=== PATIENT | female | born 1975 | race Hispanic/Latino ===

== ENCOUNTER → 2019-04-08 | Day surgery (SDC) | payer OTHER ==
[~2019-04-08] MED LIST: COLACE100 MG PO; FENTANYL CITRATE/PF 100MCG/2 ML INJ ONE; HYOSCYAMINE 0.125 MG TAB ONE; LIDOCAINE HCL 2% LOCAL INJ 5 ML SDV VIAL INJ ONE; METOCLOPRAMIDE HCL 10 MG/2ML VIAL ONE; MIDAZOLAM HCL 2 MG/2 ML VIAL ONE; PANTOPRAZOLE SO40 MG PO; PROBIOTIC & AC1 EACH PO; PROPOFOL IV EMULSION 10 MG/ML 20 ML VIAL ONE; PROPOFOL IV EMULSION 10 MG/ML 50 ML VIAL ONE
--- OUTSIDE RECORDS SUMMARY | 2019-04-08 13:34 | XMS REPORT ---
Author Author Admin, [place] Organization Unknown Address Unknown Phone Unavailable PROBLEMS Condition Status Date Provider Notes Vitamin D deficiency active Nae Scales Anemia active Nae Scales Insomnia active Nae Scales Plantar fasciitis, right active Nae Scales Screening, STD completed - Nae Scales Mammogram, Screening active - Nae Scales Pap Smear Screening, routine completed - Nae Scales Fatigue active Nae Scales Cough active Camille Real Sinusitis - acute active Camille Real Fever active Camille Noble Right knee pain active Nae Scales Annual exam active Nae Scales Abdominal pain active Nae Scales LLQ and RLQ Fever completed - Nae Scales Tonsillitis completed - Nae Scales Abnormal fasting glucose active Nae Scales Ankle pain, right completed - Nae Scales Strep pharyngitis completed - Nae Scales Screening for thyroid disorder completed - Nae Scales Screening for endocrine disease completed - Nae Scales Diabetes, Screening for completed - Nae Scales Fatty liver active Nae Scales Hypertriglyceridemia active Nae Scales Unspecified injury of right lower leg, initial encounter completed - Nae Scales Knee pain, right completed - Gayathri Scales Obesity active Nae Scales ENCOUNTERS Date Type Provider Location Encounter Diagnosis - Ambulatory Encounter Nae Scales [facility] UNK - Ambulatory Encounter Nae Ramirez [facility] UNK - Ambulatory Encounter [facility] Support Desktop [facility] Abe Nichole [facility] UNK - Ambulatory Encounter Fax Status [facility] UNK - Ambulatory Encounter Fax Status [facility] UNK - Ambulatory Encounter Fax Status [facility] UNK - Ambulatory Encounter Abe Nazario [facility] UNK - Ambulatory Encounter Abe Nichole [facility] UNK - Ambulatory Encounter Abe Nichole [facility] UNK - Ambulatory Encounter Abe Earlrera [facility] UNK - [facility] - [facility] En[facility] Fax Status [facility] UNK - Ambulatory Encounter Fax Status [facility] UNK - Ambulatory Encounter Fax Status [facility] UNK - Ambulatory Encounter Nae Scales [facility] UNK - Ambulatory Encounter Nae Smith [facility] UNK - Ambulatory Encounter Cheryl Erickson [facility] UNK - Ambulatory Encounter Nae Scales [facility] AnemiaVitamin D deficiency - Ambulatory Encounter Nae Scales [facility] UNK - Ambulatory Encounter Nae Scales [facility] UNK - Ambulatory Encounter Nae Scales [facility] UNK - Ambulatory Encounter [facility] Support Desktop [facility] Nae Scales [facility] UNK - Ambulatory Encounter [facility] Support Desktop [facility] Nae Scales [facility] UNK - Ambulatory Encounter [facility] Support Desktop [facility] Cheryl Scales [facility] UNK - Ambulatory [facility] - [facility] Encounter Nae Scales [facility] Insomnia - Ambulatory Encounter Nae Scales [facility] UNK - Ambulatory Encounter Nae Alcantar [facility] FatiguePap Smear Screening, routineMammogram, ScreeningScreening, STDPlantar fasciitis, right - Ambulatory Encounter Nae Eubanks [facility] UNK - Ambulatory Encounter Nae Scales [facility] UNK - Ambulatory Encounter [facility] Desktop Cha Scales [facility] UNK - Ambulatory Encounter Nae Scales [facility] UNK - Ambulatory Encounter Nae Scales Dena Burroughs [facility] UNK - Ambulatory Encounter Marie Cardenas [facility] UNK - Ambulatory Encounter Camille Real Camille Real [facility] UNK - Ambulatory Encounter Camille Real Camille Real Hartman [facility] FeverSinusitis - acuteCough - Ambulatory Encounter Vanessa [facility] - [facility] En[facility]ae [facility] UNK - Ambulatory Encounter Nae Scales [facility] UNK - Ambulatory Encounter Nae Scales [facility] UNK - Ambulatory Encounter Lexii Smith [facility] UNK - Ambulatory Encounter Nae Scales [facility] UNK - Ambulatory Encounter [facility] Support Desktop [facility] Lexii Scales [facility] UNK - Ambulatory Encounter Fax Status [facility] - [facility] En[facility] Fax Status [facility] - Ambulatory Encounter Fax Status [facility] UNK - Ambulatory Encounter Fax Status [facility] UNK - Ambulatory Encounter Nae Scales [facility] UNK - Ambulatory Encounter Nae Scales [facility] UNK - Ambulatory Encounter Nae Vizcarraera Derrick Lizabeth Garcia Cheryl Erickson [facility] Knee pain, rightUnspecified injury of right lower leg, initial encounterAnkle pain, rightTonsillitisFeverAbdominal painAnnual examRight knee pain - Ambulatory Encounter Jovanna Fowler [facility] UNK - Ambulatory Encounter Nae Scales [facility] UNK - Ambulatory Encounter Nae Scales [facility] UNK - Ambulatory Encounter Nae Scales [facility] UNK - Ambulatory Encounter Nae Gentile [facility] TonsillitisFever - Ambulatory Encounter Jason Foote [facility] UNK - Ambulatory Encounter Jasonamanda Foote [facility] UNK - Ambulatory Encounter [facility] Provider Amanda Reid [facility] UNK - Ambulatory Encounter Amanda Reid [facility] UNK - Ambulatory Encounter Amanda Reid [facility] UNK - Ambulatory Encounter Todd Eubanks [facility] UNK - Ambulatory Encounter Nae Scales [facility] - [facility] for endocrine diseaseScreening for thyroid disorderStrep pharyngitisAnkle pain, rightAbnormal fasting glucose - Ambulatory Encounter Constanza Barrientos [facility] UNK - Ambulatory Encounter Constanza Barrientos Priya Luna Erickson [facility] Strep pharyngitis - Ambulatory Encounter Megan Cardenas [facility] UNK - Ambulatory Encounter Megan Cardenas [facility] UNK - Ambulatory Encounter Nae Scales [facility] UNK - Ambulatory Encounter Nae Scales [facility] UNK - Ambulatory Encounter [facility] Support Desktop [facility] Scales [facility] UNK - Ambulatory Encounter Nae Scales [facility] UNK - Ambulatory Encounter Nae Scales [facility] UNK - Ambulatory Encounter Nae Scales [facility] UNK - Ambulatory Encounter Nae Cortez [facility] ObesityKnee pain, rightUnspecified injury of right lower leg, initial encounterHypertriglyceridemiaFatty liverDiabetes, Screening forScreening for endocrine diseaseScreening for thyroid disorder VITAL SIGNS No Information Available Allergies No Known Allergy Information REASON FOR REFERRAL Start Date - End Date Service - Podiatry - External - Endocrinology - Adult - Podiatry - External RESULTS Date Observation Value Provider Reference Range Interpretation Location infectious mononucleosis screen Negative [facility] Negative " ferritin, serum 5 ng/mL [facility] 15-150 Low " thyroid stimulating hormone, serum 1.680 u[iU]/mL [facility] 0.450-4.500 " vitamin D 25-hydroxy, serum 13.4 ng/mL [facility] 30.0-100.0 Low " iron saturation percent, serum 5 % [facility] 15-55 Panic low " iron, serum 18 ug/dL [facility] 27-159 Low " iron binding capacity, unsaturated 330 ug/dL [facility] 131-425 " iron binding capacity, total 348 ug/dL [facility] 250-450 " alanine aminotransferase (SGPT), serum 11 1/L [facility] 0-32 " aspartate aminotransferase (SGOT), serum 14 1/L [facility] 0-40 " alkaline phosphatase, serum 59 1/L [facility] 39-117 " bilirubin, serum, total <0.2 mg/dL [facility] 0.0-1.2 " albumin/globulin ratio, serum 1.7 [facility] 1.2-2.2 " globulin, serum 2.3 [facility] 1.5-4.5 " albumin, serum 4.0 g/dL [facility] 3.5-5.5 " protein, total, serum 6.3 g/dL [facility] 6.0-8.5 " calcium, serum 8.7 mg/dL [facility] 8.7-10.2 " carbon dioxide, venous blood 25 mmol/L [facility] 20-29 " chloride, serum 104 mmol/L [facility] 96-106 " potassium, serum 4.2 mmol/L [facility] 3.5-5.2 " sodium, serum 143 mmol/L [facility] 134-144 " urea nitrogen/creatinine ratio, serum 10 [facility] 9-23 " eGFR if 93 mL/min/((173/100).m2) [facility] >59 " Estimated Glomerular Filtration Rate (calc) 81 mL/min/((173/100).m2) [facility] >59 " creatinine, serum 0.87 mg/dL [facility] 0.57-1.00 " urea nitrogen, blood 9 mg/dL [facility] 6-24 " blood glucose, random 93 mg/dL [facility] 65-99 " immature granulocytes, percentage of total cells, blood 0 % [facility] Not Estab. " basophil count, absolute 0.0 x10E3/uL [facility] 0.0-0.2 " Eosinophil Absolute Count 0.2 X10E3/UL [facility] 0.0-0.4 " monocyte count, blood, automated 0.7 X10E3/UL [facility] 0.1-0.9 " lymphocyte count, blood, automated 2.6 X10E3/UL [facility] 0.7-3.1 " Absolute Neutrophils 5.6 X10E3/UL [facility] 1.4-7.0 " basophils as percent of blood leukocytes 0 % [facility] Not Estab. " eosinophils as percent of blood leukocytes 2 % [facility] Not Estab. " monocytes as percent of blood leukocytes 7 % [facility] Not Estab. " lymphocytes as percent of blood leukocytes 28 % [facility] Not Estab. " neutrophils as percent of blood leukocytes 63 % [facility] Not Estab. " platelet count 445 X10E3/UL [facility] 150-450 " red blood cell distribution width 16.6 % [facility] 12.3-15.4 High " mean corpuscular hemoglobin concentration, RBC 31.7 G/DL [facility] 31.5-35.7 " mean corpuscular hemoglobin, RBC 25.1 pg [facility] 26.6-33.0 Low " mean corpuscular volume, RBC 79 fL [facility] 79-97 " hematocrit, blood 30.6 % [facility] 34.0-46.6 Low " hemoglobin, blood 9.7 g/dL [facility] 11.1-15.9 Low " erythrocyte (RBC) count 3.86 X10E6/UL [facility] 3.77-5.28 " leukocyte count, blood 9.0 X10E3/UL [facility] 3.4-10.8 heterophile antibody screen (Monospot) negative Dena Nazario " hemoglobin, blood 8.0 g/dL Dena Nazario Neisseria gonorrhoeae DNA probe Negative [facility] Negative " chlamydia DNA probe Negative [facility] Negative thyroid stimulating hormone, serum 1.370 u[iU]/mL [facility] 0.450-4.500 " HIV-CMIA (Chemiluminescent Microparticle Immuno Assay) Non Reactive [facility]ic Non Reactive " vitamin D 25-hydroxy, serum 17.7 ng/mL [facility] 30.0-100.0 Low " rapid plasma reagin antibody, serum Non Reactive [facility] Non Reactive " hemoglobin A1C, blood, as % of total hemoglobin 4.7 % [facility] 4.8-5.6 Low " folate, serum 6.3 ng/mL [facility] >3.0 " B-12, serum 1990 pg/mL [facility] 232-1245 High " LDL cholesterol, serum 104 mg/dL [facility] 0-99 High " very low density lipoproteins 18 mg/dL [facility] 5-40 " HDL cholesterol, serum 47 mg/dL [facility] >39 " triglyceride, serum, fasting 91 mg/dL [facility] 0-149 " cholesterol, serum 169 mg/dL [facility] 100-199 " alanine aminotransferase (SGPT), serum 12 1/L [facility] 0-32 " aspartate aminotransferase (SGOT), serum 14 1/L [facility] 0-40 " alkaline phosphatase, serum 49 1/L [facility] 39-117 " bilirubin, serum, total 0.3 mg/dL [facility] 0.0-1.2 " albumin/globulin ratio, serum 1.9 [facility] 1.2-2.2 " globulin, serum 2.2 [facility] 1.5-4.5 " albumin, serum 4.1 g/dL [facility] 3.5-5.5 " protein, total, serum 6.3 g/dL [facility] 6.0-8.5 " calcium, serum 8.9 mg/dL [facility] 8.7-10.2 " carbon dioxide, venous blood 23 mmol/L [facility] 20-29 " chloride, serum 106 mmol/L [facility] 96-106 " potassium, serum 4.7 mmol/L [facility] 3.5-5.2 " sodium, serum 141 mmol/L [facility] 134-144 " urea nitrogen/creatinine ratio, serum 19 [facility] 9-23 " eGFR if 138 mL/min/((173/100).m2) [facility] >59 " Estimated Glomerular Filtration Rate (calc) 120 mL/min/((173/100).m2) [facility] >59 " creatinine, serum 0.48 mg/dL [facility] 0.57-1.00 Low " urea nitrogen, blood 9 mg/dL [facility] 6-24 " blood glucose, random 85 mg/dL [facility] 65-99 " immature granulocytes, percentage of total cells, blood 0 % [facility] Not Estab. " basophil count, absolute 0.0 x10E3/uL [facility] 0.0-0.2 " Eosinophil Absolute Count 0.2 X10E3/UL [facility] 0.0-0.4 " monocyte count, blood, automated 0.4 X10E3/UL [facility] 0.1-0.9 " lymphocyte count, blood, automated 2.3 X10E3/UL [facility] 0.7-3.1 " Absolute Neutrophils 3.1 X10E3/UL [facility] 1.4-7.0 " basophils as percent of blood leukocytes 1 % [facility] Not Estab. " eosinophils as percent of blood leukocytes 4 % [facility] Not Estab. " monocytes as percent of blood leukocytes 6 % [facility] Not Estab. " lymphocytes as percent of blood leukocytes 39 % [facility] Not Estab. " neutrophils as percent of blood leukocytes 50 % [facility] Not Estab. " platelet count 474 X10E3/UL [facility] 150-379 High " red blood cell distribution width 15.6 % [facility] 12.3-15.4 High " mean corpuscular hemoglobin concentration, RBC 30.7 G/DL [facility] 31.5-35.7 Low " mean corpuscular hemoglobin, RBC 24.6 pg [facility] 26.6-33.0 Low " mean corpuscular volume, RBC 80 fL [facility] 79-97 " hematocrit, blood 33.5 % [facility] 34.0-46.6 Low " hemoglobin, blood 10.3 g/dL [facility] 11.1-15.9 Low " erythrocyte (RBC) count 4.18 X10E6/UL [facility] 3.77-5.28 " leukocyte count, blood 6.0 X10E3/UL [facility] 3.4-10.8 hemoglobin A1C, blood, as % of total hemoglobin 5.6 % [facility] 4.8-5.6 " LDL cholesterol, serum 96 mg/dL [facility] 0-99 " very low density lipoproteins 22 mg/dL [facility] 5-40 " HDL cholesterol, serum 41 mg/dL [facility] >39 " triglyceride, serum, fasting 111 mg/dL [facility] 0-149 " cholesterol, serum 159 mg/dL [facility] 100-199 " alanine aminotransferase (SGPT), serum 19 1/L [facility] 0-32 " aspartate aminotransferase (SGOT), serum 20 1/L [facility] 0-40 " alkaline phosphatase, serum 65 1/L [facility] 39-117 " bilirubin, serum, total 0.4 mg/dL [facility] 0.0-1.2 " albumin/globulin ratio, serum 1.8 [facility] 1.2-2.2 " globulin, serum 2.4 [facility] 1.5-4.5 " albumin, serum 4.2 g/dL [facility] 3.5-5.5 " protein, total, serum 6.6 g/dL [facility] 6.0-8.5 " calcium, serum 9.1 mg/dL [facility] 8.7-10.2 " carbon dioxide, venous blood 23 mmol/L [facility] 18-29 " chloride, serum 104 mmol/L [facility] 96-106 " potassium, serum 4.4 mmol/L [facility] 3.5-5.2 " sodium, serum 142 mmol/L [facility] 134-144 " urea nitrogen/creatinine ratio, serum 16 [facility] 9-23 " eGFR if 132 mL/min/((173/100).m2) [facility] >59 " Estimated Glomerular Filtration Rate (calc) 115 mL/min/((173/100).m2) [facility] >59 " creatinine, serum 0.56 mg/dL [facility] 0.57-1.00 Low " urea nitrogen, blood 9 mg/dL [facility] 6-24 " blood glucose, random 100 mg/dL [facility] 65-99 High hemoglobin A1C, blood, as % of total hemoglobin 5.8 % [facility] 4.8-5.6 High " LDL cholesterol, serum 128 mg/dL [facility] 0-99 High " very low density lipoproteins 38 mg/dL [facility] 5-40 " HDL cholesterol, serum 42 mg/dL [facility] >39 " triglyceride, serum, fasting 192 mg/dL [facility] 0-149 High " cholesterol, serum 208 mg/dL [facility] 100-199 High " alanine aminotransferase (SGPT), serum 29 1/L [facility] 0-32 " aspartate aminotransferase (SGOT), serum 28 1/L [facility] 0-40 " alkaline phosphatase, serum 60 1/L [facility] 39-117 " bilirubin, serum, total 0.4 mg/dL [facility] 0.0-1.2 " albumin/globulin ratio, serum 1.9 [facility] 1.2-2.2 " globulin, serum 2.3 [facility] 1.5-4.5 " albumin, serum 4.3 g/dL [facility] 3.5-5.5 " protein, total, serum 6.6 g/dL [facility] 6.0-8.5 " calcium, serum 9.0 mg/dL [facility] 8.7-10.2 " carbon dioxide, venous blood 24 mmol/L [facility] 18-29 " chloride, serum 104 mmol/L [facility] 96-106 " potassium, serum 4.7 mmol/L [facility] 3.5-5.2 " sodium, serum 142 mmol/L [facility] 134-144 " urea nitrogen/creatinine ratio, serum 20 [facility] 9-23 " eGFR if 130 mL/min/((173/100).m2) [facility] >59 " Estimated Glomerular Filtration Rate (calc) 113 mL/min/((173/100).m2) [facility] >59 " creatinine, serum 0.59 mg/dL [facility] 0.57-1.00 " urea nitrogen, blood 12 mg/dL [facility] 6-24 " blood glucose, random 101 mg/dL [facility] 65-99 High " immature granulocytes, percentage of total cells, blood 0 % [facility] " basophil count, absolute 0.0 x10E3/uL [facility] 0.0-0.2 " Eosinophil Absolute Count 0.3 X10E3/UL [facility] 0.0-0.4 " monocyte count, blood, automated 0.5 X10E3/UL [facility] 0.1-0.9 " lymphocyte count, blood, automated 3.1 X10E3/UL [facility] 0.7-3.1 " Absolute Neutrophils 4.4 X10E3/UL [facility] 1.4-7.0 " basophils as percent of blood leukocytes 1 % [facility] " eosinophils as percent of blood leukocytes 3 % [facility] " monocytes as percent of blood leukocytes 6 % [facility] " lymphocytes as percent of blood leukocytes 38 % [facility] " neutrophils as percent of blood leukocytes 52 % [facility] " platelet count 378 X10E3/UL [facility] 150-379 " red blood cell distribution width 15.3 % [facility] 12.3-15.4 " mean corpuscular hemoglobin concentration, RBC 31.9 G/DL [facility] 31.5-35.7 " mean corpuscular hemoglobin, RBC 27.4 pg [facility] 26.6-33.0 " mean corpuscular volume, RBC 86 fL [facility] 79-97 " hematocrit, blood 36.0 % [facility] 34.0-46.6 " hemoglobin, blood 11.5 g/dL [facility] 11.1-15.9 " erythrocyte (RBC) count 4.19 X10E6/UL [facility] 3.77-5.28 " leukocyte count, blood 8.3 X10E3/UL [facility] 3.4-10.8 Microbial identification kit, rapid strep method negative Nae Scales influenza B virus antigen negative Priya Butler " influenza virus A antigen negative Priya Butler " Microbial identification kit, rapid strep method positive Priya Butler thyroid stimulating hormone, serum 1.940 u[iU]/mL [facility] 0.450-4.500 " hemoglobin A1C, blood, as % of total hemoglobin 5.7 % [facility] 4.8-5.6 High " LDL cholesterol, serum 160 mg/dL [facility] 0-99 High " very low density lipoproteins 26 mg/dL [facility] 5-40 " HDL cholesterol, serum 47 mg/dL [facility] >39 " triglyceride, serum, fasting 132 mg/dL [facility] 0-149 " cholesterol, serum 233 mg/dL [facility] 100-199 High " alanine aminotransferase (SGPT), serum 25 1/L [facility] 0-32 " aspartate aminotransferase (SGOT), serum 24 1/L [facility] 0-40 " alkaline phosphatase, serum 66 1/L [facility] 39-117 " bilirubin, serum, total 0.3 mg/dL [facility] 0.0-1.2 " albumin/globulin ratio, serum 1.7 [facility] 1.2-2.2 " globulin, serum 2.6 [facility] 1.5-4.5 " albumin, serum 4.3 g/dL [facility] 3.5-5.5 " protein, total, serum 6.9 g/dL [facility] 6.0-8.5 " calcium, serum 9.2 mg/dL [facility] 8.7-10.2 " carbon dioxide, venous blood 23 mmol/L [facility] 18-29 " chloride, serum 100 mmol/L [facility] 96-106 " potassium, serum 4.8 mmol/L [facility] 3.5-5.2 " sodium, serum 141 mmol/L [facility] 134-144 " urea nitrogen/creatinine ratio, serum 21 [facility] 9-23 " eGFR if 135 mL/min/((173/100).m2) [facility] >59 " Estimated Glomerular Filtration Rate (calc) 117 mL/min/((173/100).m2) [facility] >59 " creatinine, serum 0.53 mg/dL [facility] 0.57-1.00 Low " urea nitrogen, blood 11 mg/dL [facility] 6-24 " blood glucose, random 95 mg/dL [facility] 65-99 " immature granulocytes, percentage of total cells, blood 0 % [facility] " basophil count, absolute 0.0 x10E3/uL [facility] 0.0-0.2 " Eosinophil Absolute Count 0.3 X10E3/UL [facility] 0.0-0.4 " monocyte count, blood, automated 0.7 X10E3/UL [facility] 0.1-0.9 " lymphocyte count, blood, automated 3.5 X10E3/UL [facility] 0.7-3.1 High " Absolute Neutrophils 6.2 X10E3/UL [facility] 1.4-7.0 " basophils as percent of blood leukocytes 0 % [facility] " eosinophils as percent of blood leukocytes 2 % [facility] " monocytes as percent of blood leukocytes 6 % [facility] " lymphocytes as percent of blood leukocytes 33 % [facility] " neutrophils as percent of blood leukocytes 59 % [facility] " platelet count 394 X10E3/UL [facility] 150-379 High " red blood cell distribution width 14.9 % [facility] 12.3-15.4 " mean corpuscular hemoglobin concentration, RBC 32.1 G/DL [facility] 31.5-35.7 " mean corpuscular hemoglobin, RBC 28.2 pg [facility] 26.6-33.0 " mean corpuscular volume, RBC 88 fL [facility] 79-97 " hematocrit, blood 39.0 % [facility] 34.0-46.6 " hemoglobin, blood 12.5 g/dL [facility] 11.1-15.9 " erythrocyte (RBC) count 4.44 X10E6/UL [facility] 3.77-5.28 " leukocyte count, blood 10.7 X10E3/UL [facility] 3.4-10.8 HISTORY OF IMMUNIZATIONS No Information Available HISTORY OF MEDICATION USE Medication Instructions Dates Provider Comments VITAMIN D (ERGOCALCIFEROL) 01336 UNIT ORAL CAPSULE One capsule by mouth once per week for 12 weeks - Nae Scales FEOSOL 200 (65 FE) MG ORAL TABLET 1 tablet daily Abe Nichole VITAMIN D (ERGOCALCIFEROL) 02852 UNIT ORAL CAPSULE One capsule by mouth once per week for 10 weeks - Nae Scales VITAMIN C 500 MG ORAL TABLET 1 by mouth every day Nae Scales FERROUS SULFATE 325 (65 FE) MG ORAL TABLET DELAYED RELEASE 1 by mouth 2 times a daily Nae Scales DOXEPIN HCL 25 MG ORAL CAPSULE 1 by mouth nightly at bedtime Nae Scales PHENTERMINE HCL 37.5 MG ORAL TABLET 1/2 tablet by mouth daily Nae Scales CHERATUSSIN AC 100-10 MG/5ML ORAL SOLUTION 10 ml every 6 hrs as needed for cough Camille Real AMOXICILLIN 500 MG ORAL CAPSULE 1 by mouth 2 times a day - Camille Real LOVASTATIN 10 MG ORAL TABLET 1 by mouth every night Nae Scales AZITHROMYCIN 250 MG ORAL TABLET 2 tablets by mouth on day one then one tablet by mouth each day for a total of 5 days - Camille Real PENICILLIN V POTASSIUM 250 MG ORAL TABLET 1 by mouth 4 times a day or ii tablets twice daily for strep throat - Nae Scales SOCIAL HISTORY Date Observation Value Provider Exercise Program Referral Seda Alcantar " Weight Management Counseling Provided Seda Alcantar " Nutrition intervention T Augustina Alcantar " drug use, illicit Never Bettye S Gonzales " alcohol use Never Bettye S Gonzales " social history E&M . Not homeless. Born in [place]. Not employed. Highest education level: none-8th grade. Sex at : Female. Sexual orientation: Heterosexual. Gender identity: Female. Gender of partner(s): Male. Bettye S Gonzales " social history reviewed E&M reviewed today Bettye S Gonzales " sexual orientation Heterosexual Bettye S Gonzales " assessment of health literacy ([facility] 2014 Standards, 3C10) Adequate Bettye S Gonzales " passive cigarette smoke exposure No Bettye S Gonzales " smoking status never smoker Bettye S Gonzales drug use, illicit Never Lizabeth Garcia " alcohol use Never Lizabeth Garcia " social history E&M . Not homeless. Born in [place]. Not employed. Highest education level: none-8th grade. Sex at : Female. Sexual orientation: Heterosexual. Gender identity: Female. Gender of partner(s): Male. Lizabeth Garcia " social history reviewed E&M reviewed today Lizabeth Garcia " sexual orientation Heterosexual Lizabeth Garcia " assessment of health literacy ([facility] 2014 Standards, 3C10) Adequate Lizabeth Garcia " passive cigarette smoke exposure No Lizabeth Garcia " smoking status never smoker Lizabeth Garcia Exercise Program Referral Seda Scales " Weight Management Counseling Provided Seda Scalse " Nutrition intervention Seda Scales " sexual orientation Heterosexual Sharlene Luis " assessment of health literacy ([facility] 2014 Standards, 3C10) Adequate Sharlene Luis " drug use, illicit Never Sharlene Luis " alcohol use Never Sharlene Luis " smoking status never smoker Sharlene Luis Exercise Program Referral Seda Scales " Weight Management Counseling Provided Seda Scales " Nutrition intervention Seda Scales " drug use, illicit Never Lizabeth Garcia " alcohol use Never Lizabeth Garcia " social history E&M . Not homeless. Born in [place]. Not employed. Highest education level: none-8th grade. Sex at : Female. Sexual orientation: Heterosexual. Gender identity: Female. Gender of partner(s): Male. Lizabeth Garcia " social history reviewed E&M reviewed today Lizabeth Garcia " sexual orientation Heterosexual Lizabeth Garcia " assessment of health literacy ([facility] 2014 Standards, 3C10) Adequate Lizabeth Garcia " passive cigarette smoke exposure No Lizabeth Garcia " smoking status never smoker Lizabeth Garcia drug use, illicit Never Dena Burroughs " alcohol use Never Dena Burroughs " social history E&M . Not homeless. Born in [place]. Not employed. Highest education level: none-8th grade. Sex at : Female. Sexual orientation: Heterosexual. Gender identity: Female. Gender of partner(s): Male. Dena Frosts " social history reviewed E&M reviewed today Dena Frosts " sexual orientation Heterosexual Dena Frosts " passive cigarette smoke exposure No Dena Burroughs " smoking status never smoker Dena Burroughs " assessment of health literacy ([facility] 2014 Standards, 3C10) Adequate Dena Burroughs " Exercise Program Referral T Dena Frosts " Weight Management Counseling Provided T Dena Frosts " Nutrition intervention T Dena Frosts drug use, illicit Never Merlyn Hartman " alcohol use Never Merlyn Hartman " social history E&M . Not homeless. Born in [place]. Not employed. Highest education level: none-8th grade. Sex at : Female. Sexual orientation: Heterosexual. Gender identity: Female. Gender of partner(s): Male. Merlyn Hartman " social history reviewed E&M reviewed today Merlyn Hartman " passive cigarette smoke exposure No Merlyn Hartman " smoking status never smoker Merlyn Hartman " assessment of health literacy ([facility] 2014 Standards, 3C10) Adequate Merlyn Hartman Exercise Program Referral T Nae Scales " Weight Management Counseling Provided T Nae Scales " Nutrition intervention T Nae Scales " drug use, illicit Never Cheryl Erickson " alcohol use Never Cheryl Erickson " social history E&M . Not homeless. Born in [place]. Not employed. Highest education level: none-8th grade. Sex at : Female. Sexual orientation: Heterosexual. Gender identity: Female. Gender of partner(s): Male. Cheryl Erickson " social history reviewed E&M reviewed today Cheryl Erickson " sexual orientation Heterosexual Cheryl Erickson " passive cigarette smoke exposure No Cheryl Erickson " smoking status never smoker Cheryl Erickson " assessment of health literacy ([facility] 2014 Standards, 3C10) Adequate Cheryl Erickson assessment of health literacy ([facility] 2014 Standards, 3C10) Adequate Nae Scales " Exercise Program Referral Seda Scales " Weight Management Counseling Provided Seda Scalse " Nutrition intervention Seda Scales " drug use, illicit Never Tahira Gentile " alcohol use Never Tahira Gentile " social history E&M . Not homeless. Born in [place]. Not employed. Highest education level: none-8th grade. Sex at : Female. Sexual orientation: Heterosexual. Gender identity: Female. Gender of partner(s): Male. Tahira Gentile " social history reviewed E&M reviewed today Tahira Gentile " sexual orientation Heterosexual Tahira Gentile " passive cigarette smoke exposure No Tahira Gentile " smoking status never smoker Tahira Gentile assessment of health literacy ([facility] 2014 Standards, 3C10) Adequate Nae Scales " Exercise Program Referral Seda Scales " Weight Management Counseling Provided Seda Scales " Nutrition intervention Seda Scales " drug use, illicit Never Julissa Cortez " alcohol use Never Julissa Cortez " social history E&M . Not homeless. Born in [place]. Not employed. Highest education level: none-8th grade. Sex at : Female. Sexual orientation: Heterosexual. Gender identity: Female. Gender of partner(s): Male. Julissa Cortez " social history reviewed E&M reviewed today Julissa Cortez " sexual orientation Heterosexual Julissa Cortez " passive cigarette smoke exposure No Julissa Cortez " smoking status never smoker Julissa Cortez assessment of health literacy ([facility] 2014 Standards, 3C10) Adequate Priya Butler " social history E&M . Not homeless. Born in [place]. Not employed. Highest education level: none-8th grade. Sex at : Female. Sexual orientation: Heterosexual. Gender identity: Female. Gender of partner(s): Male. Priya Butler " social history reviewed E&M reviewed today Priya Butler " sexual orientation Heterosexual Priya Butler " passive cigarette smoke exposure No Priya Butler " smoking status never smoker Priya Butler assessment of health literacy ([facility] 2014 Standards, 3C10) Mario Scales " Exercise Program Referral Seda Scales " Weight Management Counseling Provided Seda Scales " Nutrition intervention Seda Scales " social history E&M . Not homeless. Born in [place]. Not employed. Highest education level: none-8th grade. Sex at : Female. Sexual orientation: Heterosexual. Gender identity: Female. Gender of partner(s): Male. Julissa Traylorierrez " sex at Female Julissa Traylorierrez " patient considered to be homeless No Julissaadolfo Cortez " drug use, illicit Never Julissa Diego " alcohol use Never Julissa Traylorierrez " passive cigarette smoke exposure No Julissa Traylorierrez " smoking status never smoker Julissa Diego " social history reviewed E&M reviewed today Julissa Diego " sexual orientation Heterosexual Julissa Traylorierrez FUNCTIONAL STATUS No Information Available MENTAL STATUS Date Observation Value Provider assessment of judgment and insight E&M limited Nae Scales " mental status examination: orientation E&M oriented to time, place, and person Nae Scales " assessment of mood and affect E&M pleasant Nae Scales " Generalized Anxiety Disorder Questionnaire - Question 2 0 Bettye Gonzales " Generalized Anxiety Disorder Questionnaire - Question 1 0 Bettye Gonzales assessment of judgment and insight E&M intact Abe Nichole " mental status examination: orientation E&M oriented to time, place, and person Abe Nichole " assessment of mood and affect E&M no depression, anxiety, or agitation Abe Nichole " Generalized Anxiety Disorder Questionnaire - Question 2 0 Lizabeth Garcia " Generalized Anxiety Disorder Questionnaire - Question 1 0 Lizabeth Garcia assessment of judgment and insight E&M intact Nae Scales " mental status examination: orientation E&M oriented to time, place, and person Nae Scales " assessment of mood and affect E&M no depression, anxiety, or agitation Nae Scales " Generalized Anxiety Disorder Questionnaire - Question 2 0 Sharlene Smith " Generalized Anxiety Disorder Questionnaire - Question 1 0 Sharlene Smith assessment of judgment and insight E&M intact Nae Scales " mental status examination: orientation E&M oriented to time, place, and person Nae Scales " assessment of mood and affect E&M no depression, anxiety, or agitation Nae Scales " Generalized Anxiety Disorder Questionnaire - Question 2 0 Lizabeth Garcia " Generalized Anxiety Disorder Questionnaire - Question 1 0 Lizabeth Garcia assessment of judgment and insight E&M intact Nae Loyda " mental status examination: orientation E&M oriented to time, place, and person Nae Scales " assessment of mood and affect E&M no depression, anxiety, or agitation Naejose j Scales " Generalized Anxiety Disorder Questionnaire - Question 2 0 Dena Burroughs " Generalized Anxiety Disorder Questionnaire - Question 1 0 Dena Burroughs Generalized Anxiety Disorder Questionnaire - Question 2 0 Merlyn Hartman " Generalized Anxiety Disorder Questionnaire - Question 1 0 Merlyn Hartman assessment of judgment and insight E&M intact Nae Scales " mental status examination: orientation E&M oriented to time, place, and person Nae Scales " assessment of mood and affect E&M no depression, anxiety, or agitation Nae Scales " Generalized Anxiety Disorder Questionnaire - Question 2 0 Cheryl Erickson " Generalized Anxiety Disorder Questionnaire - Question 1 0 Cheryl Earlrera assessment of judgment and insight E&M intact Nae Scales " mental status examination: orientation E&M oriented to time, place, and person Nae Scales " Generalized Anxiety Disorder Questionnaire - Question 2 0 Tahira Gentile " Generalized Anxiety Disorder Questionnaire - Question 1 0 Tahira Gentile assessment of judgment and insight E&M intact Nae Scales " mental status examination: orientation E&M oriented to time, place, and person Nae Scales " assessment of mood and affect E&M no depression, anxiety, or agitation Nae Loyda Generalized Anxiety Disorder Questionnaire - Question 2 0 Priya Butler " Generalized Anxiety Disorder Questionnaire - Question 1 0 Priya Butler assessment of judgment and insight E&M intact Nae Loyda " mental status examination: orientation E&M oriented to time, place, and person Nae Scales " assessment of mood and affect E&M no depression, anxiety, or agitation Nae Scales " Generalized Anxiety Disorder Questionnaire - Question 2 0 Julissa Cortez " Generalized Anxiety Disorder Questionnaire - Question 1 0 Julissa Cortez MEDICAL EQUIPMENT No Information Available FAMILY HISTORY No Information Available INSURANCE PROVIDERS No Information Available ADVANCE DIRECTIVES No Information Available TREATMENT PLAN Date Name Lipid Panel Vitamin D, 25-Hydroxy Ferritin, Serum Iron and TIBC TSH Rfx on Abnormal to Free T4 Comp. Metabolic Panel (14) CBC With Differential/Platelet Mononucleosis Test, Qual Vitamin B12 and Folate Vitamin D, 25-Hydroxy Chlamydia/GC Amplification Pap w/HPV w rflx 16/18/45 (30+) RPR, Rfx Qn RPR/Confirm TP HIV 1/2 ANTIGEN/ANTIBODY, FOURTH GENERATION W/RFL TSH Rfx on Abnormal to Free T4 Hemoglobin A1c Lipid Panel Comp. Metabolic Panel (14) CBC With Differential/Platelet Comp. Metabolic Panel (14) Hemoglobin A1c Lipid Panel Hemoglobin A1c Lipid Panel Comp. Metabolic Panel (14) CBC With Differential/Platelet TSH Rfx on Abnormal to Free T4 Hemoglobin A1c Lipid Panel Comp. Metabolic Panel (14) CBC With Differential/Platelet - - - - - please evaluate right knee pain - - Est Patient Exp Problem - 56129 Ofc Vst, Est Level III BLOOD COUNT HEMOGLOBIN Est Patient Exp Problem - 08950 Est Patient Well Exam (40 - 64 Yrs) - 54934 Est Patient Exp Problem - 13165 Est Patient Exp Problem - 09181 Rapid Flu - In House Est Patient Well Exam (40 - 64 Yrs) - 81211 Rapid Strep - In House Est Patient Exp Problem - 71604 Interpretation Services Health Education/Supportive Counseling General Patient Education Est Patient Exp Problem - 50705 Rapid Strep - In House Est Patient Exp Problem - 96892 New Patient Detailed - 26419 HISTORY OF PROCEDURES Procedure Date Procedure Name Provider Procedure Notes Status BLOOD COUNT HEMOGLOBIN Abe Nichole completed Rapid Flu - In House Camille Noble completed Rapid Strep - In House Nae Scales completed Interpretation Services Public Health Services Provider completed Health Education/Supportive Counseling Public Health Services Provider completed Rapid Strep - In House Constanza Barrientos completed GOALS No Information Available HEALTH CONCERNS No Information Available
--- OUTSIDE RECORDS SUMMARY | 2019-04-08 13:34 | XMS REPORT ---
Author Author Admin, [place] Organization Unknown Address Unknown Phone Unavailable PROBLEMS Condition Status Date Provider Notes Constipation Unspecified active Abe Nichole Vitamin D deficiency active Nae Scales Anemia active Nae Scales Insomnia active Nae Scales Plantar fasciitis, right active Nae Scales Screening, STD completed - Nae Scales Mammogram, Screening active - Nae Scales Pap Smear Screening, routine completed - Nae Scales Fatigue active Nae Scales Cough active Camille Real Sinusitis - acute active Camille Real Fever active Camille Rossen Right knee pain active Nae Scales Annual [...] Nae Scales Knee pain, right completed - Nae Scales Obesity active Nae Scales ENCOUNTERS Date Type Provider Location Encounter Diagnosis - Ambulatory Encounter Abe Nichole [facility] UNK - Ambulatory Encounter [facility] UNK - Ambulatory Encounter Abe Thompsona [facility] Constipation Unspecified - Ambulatory Encounter Nae Scales [facility] UNK - Ambulatory Encounter Nae Gonzales [facility] UNK - Ambulatory Encounter [facility] Desktop [facility] Abe Nichole [facility] UNK - Ambulatory Encounter Fax Status [facility] UNK - Ambulatory Encounter F[facility] Status [facility] UNK [facility] Ambulatory Encounter Fax Status [facility] UNK - Ambulatory Encounter Abe Nazario [facility] UNK - Ambulatory Encounter Abe Nichole [facility] UNK - Ambulatory Encounter Abe Nichole [facility] UNK - Ambulatory Encounter Abe Erickson [facility] UNK - Ambulatory Encounter Nae Scales [facility] UNK - Ambulatory Encounter Fax Status [facility] UNK - Ambulatory Encounter Fax Status [facility]K - Ambulatory Encounter Fax Status [facility] UNK - Ambulatory Encounter Nae Scales [facility] UNK - Ambulatory Encounter Nae Smith [facility] UNK - Ambulatory Encounter Cheryl Erickson [facility] UNK - Ambulatory Encounter Nae Scales [facility] AnemiaVitamin D deficiency - Ambulatory Encounter Nae Scales [facility] UNK - Ambulatory Encounter Nae Scales [facility] UNK - Ambulatory Encounter Nae Scales [facility] UNK - Ambulatory Encounter [facility] Support Desktop [facility] Nae Scales [facility] UNK - Ambulatory Encounter [facility] Support Desktop [facility] Nae Scales [facility] UNK - Ambulatory Encounter [facility] Support Desktop [facility] Cheryl Scales [facility] UNK - Ambulatory Encounter Fax Status [facility] UNK - Ambulatory Encounter Fax Status [facility] UNK - Ambulatory Encounter Fax Status [facility] UNK - Ambulatory Encounter Nae Scales [facility] Insomnia - Ambulatory Encounter Nae Scales [facility] UNK - Ambulatory Encounter Nae Meza Lizabeth Garcia Cheryl Alcantar [facility] FatiguePap Smear Screening, routineMammogram, ScreeningScreening, STDPlantar fasciitis, right - Ambulatory Encounter Nae Scales [facility] UNK - Ambulatory Encounter Nae Scales [facility] UNK - Ambulatory Encounter [facility] Desktop [facility] Nae Scales [facility] UNK - Ambulatory Encounter Nae Scales [facility] UNK - Ambulatory Encounter Nae Burroughs [facility] UNK - Ambulatory Encounter Marie Ronald [facility] UNK - Ambulatory Encounter Camille Noble [facility] UNK - Ambulatory Encounter Camille Hartman [facility] FeverSinusitis - acuteCough - Ambulatory Encounter Vanessa Oreilly [facility] UNK - Ambulatory Encounter Nae Scales [facility] UNK - Ambulatory Encounter Nae Scales [facility] UNK - Ambulatory Encounter Nae Scales [facility] UNK - Ambulatory Encounter Lexii Smith [facility] UNK - Ambulatory Encounter Nae Scales [facility] UNK - Ambulatory Encounter [facility] Desktop [facility] Lexii Carvalho [facility] UNK - Ambulatory Encounter Fax Status [facility] UNK - Ambulatory Encounter Fax Status [facility] UNK - Ambulatory Encounter Fax Status [facility] UNK - Ambulatory Encounter Fax Status [facility] UNK - Ambulatory Encounter Nae Scales [facility] UNK - Ambulatory Encounter Nae Scales [facility] UNK - Ambulatory Encounter Nae Luna Erickson [facility] Knee pain, rightUnspecified injury of right lower leg, initial encounterAnkle pain, rightTonsillitisFeverAbdominal painAnnual examRight knee pain - Ambulatory Encounter Jovanna Fowler [facility] UNK - Ambulatory Encounter Nae Scales [facility] UNK - Ambulatory Encounter Nae Scales [facility] UNK - Ambulatory Encounter Nae Scales [facility] UNK - Ambulatory Encounter Nae Gentile [facility] TonsillitisFever - Ambulatory Encounter Jason Foote [facility] UNK - Ambulatory Encounter Jason Foote [facility] UNK - Ambulatory Encounter [facility] - [facility] Reid [facility] UNK - Ambulatory Encounter Toddamanda Fullers [facility] UNK - Ambulatory Encounter Nae Scales [facility] UNK - Ambulatory Encounter Nae Reid [facility] Screening for endocrine diseaseScreening for thyroid disorderStrep pharyngitisAnkle pain, rightAbnormal fasting glucose - Ambulatory Encounter Constanza Iliana [facility] UNK - Ambulatory Encounter Constanza Iliana Erickson [facility] Strep pharyngitis - Ambulatory Encounter Megan Cardenas [facility] UNK - Ambulatory Encounter Megan Cardenas [facility] UNK - Ambulatory Encounter Nae Scales [facility] UNK - Ambulatory Encounter Nae Scales [facility] UNK - Ambulatory Encounter [facility] Desktop Cha Scales [facility] UNK - Ambulatory Encounter Nae Scales [facility] UNK - Ambulatory Encounter Nae Scales [facility] UNK - Ambulatory Encounter Nae Scales [facility] UNK - Ambulatory Encounter Nae Cortez [facility] ObesityKnee pain, rightUnspecified injury of right lower leg, initial encounterHypertriglyceridemiaFatty liverDiabetes, Screening forScreening for endocrine diseaseScreening for thyroid disorder VITAL SIGNS No Information Available Allergies No Known Allergy Information REASON FOR REFERRAL Start Date - End Date Service - Podiatry - External - Endocrinology - Adult - Podiatry - External RESULTS Date Observation Value Provider Reference Range Interpretation Location glucose, urine, semiquantitative negative Yohana Pool " bilirubin, urine negative [facility] " ketones, urine, by test strip negative [facility] " blood in urine (hemoglobin) by dipstick 3+ [facility] " protein, urine, semiquantitative (dipstick) negative [facility] " urobilinogen, urine, semiquantitative (dipstick) negative [facility] " nitrite, urine, semiquantitative negative [facility] " leukocyte esterase, urine, by dipstick negative [facility] " appearance, urine clear [facility] " urine color yellow [facility] infectious mononucleosis screen Negative [facility] Negative " [...] MEDICATION USE Medication Instructions Dates Provider Comments DULCOLAX 10 MG RECTAL SUPPOSITORY 1 suppository as needed Abe Nichole COLACE 100 MG ORAL CAPSULE 1 by mouth twice a day as needed Abe Nichole VITAMIN D (ERGOCALCIFEROL) 75231 UNIT ORAL CAPSULE One capsule by mouth once per week for 12 weeks - Nae Scales FEOSOL 200 (65 FE) MG ORAL TABLET 1 tablet daily Abe Nichole VITAMIN D (ERGOCALCIFEROL) 74081 UNIT ORAL CAPSULE One capsule by mouth [...] ORAL TABLET 1/2 tablet by mouth daily - Abe Nichole CHERATUSSIN AC 100-10 MG/5ML ORAL SOLUTION 10 ml every 6 hrs as needed for cough - Abe Nichole AMOXICILLIN 500 MG ORAL CAPSULE 1 by mouth 2 times a day - Camille Noble LOVASTATIN 10 MG ORAL TABLET 1 by mouth every night Nae Scales AZITHROMYCIN 250 MG ORAL TABLET 2 tablets by mouth on day one then one tablet by mouth each day for a total of 5 days - Camille Noble PENICILLIN V POTASSIUM 250 MG ORAL TABLET 1 by mouth 4 times a day or ii tablets twice daily for strep throat - Nae Scales SOCIAL HISTORY Date Observation Value Provider drug use, illicit Never Yohana Pool " alcohol use Never Yohana Pool " social history E&M . Not homeless. Born in [place]. Not employed. Highest education level: none-8th grade. Sex at : Female. Sexual orientation: Heterosexual. Gender identity: Female. Gender of partner(s): Male. Yohana Pool " social history reviewed E&M reviewed today Yohana Pool " assessment of health literacy ([facility] 2014 Standards, 3C10) Adequate Yohana Pool " passive cigarette smoke exposure No Yohana Pool " smoking status never smoker Yohana Pool " Exercise Program Referral T Yohana Pool " Weight Management Counseling Provided T Yohana Pool " Nutrition intervention T Yohana Pool Exercise Program Referral T Augustina Alcantar " Weight Management Counseling Provided T Augustina Alcantar " Nutrition intervention T Augustina Alcantar [...] S Gonzales " assessment of health literacy ([facility] 2014 Standards, 3C10) Adequate Bettye [...] Lizabeth Garcia " assessment of health literacy ([facility] 2014 Standards, 3C10) Adequate Lizabeth Garcia " passive cigarette smoke exposure No Lizabeth Garcia " smoking status never smoker Lizabeth Garcia Exercise Program Referral Seda Scales " Weight Management Counseling Provided Seda Scales " Nutrition intervention Seda Scales " sexual orientation Heterosexual Sharlene Luis " assessment of health literacy ([facility] 2014 Standards, 3C10) Adequate Sharlene [...] Lizabeth Garcia " assessment of health literacy ([facility] 2014 Standards, 3C10) Adequate Lizabeth Garcia " passive cigarette smoke exposure No Lizabeth Garcia " smoking status never smoker Lizabeth Garcia drug use, illicit Never Dena Burroughs " alcohol use Never Dena Frosts " social history E&M . Not homeless. Born in [place]. Not employed. Highest education level: none-8th grade. Sex at : Female. Sexual orientation: Heterosexual. Gender identity: Female. Gender of partner(s): Male. Dena Burroughs " social history reviewed E&M reviewed today Dena Burroughs " sexual orientation Heterosexual Dena Burroughs " passive cigarette smoke exposure No Dena Burroughs " smoking status never smoker Dena Burroughs " assessment of health literacy ([facility] 2014 Standards, 3C10) Adequate Dena Burroughs " Exercise Program Referral T Dena Burroughs " Weight Management Counseling Provided T Dena Burroughs " Nutrition intervention T Dena Burroughs drug use, illicit Never Merlyn Hartman " [...] Merlyn Hartman " assessment of health literacy ([facility] 2014 Standards, 3C10) Adequate Merlyn [...] Cheryl Erickson " assessment of health literacy ([facility] 2014 Standards, 3C10) Adequate Cheryl Erickson assessment of health literacy ([facility] 2014 Standards, 3C10) Adequate Nae [...] smoker Tahira Gentile assessment of health literacy ([facility] 2014 Standards, 3C10) Adequate Nae [...] Cortez " smoking status never smoker Julissa Novarez assessment of health literacy ([facility] 2014 Standards, 3C10) Adequate Priya [...] smoker Priya Butler assessment of health literacy ([facility] 2014 Standards, 3C10) Adequate Nae Scales " Exercise Program Referral Seda Scales " Weight Management Counseling Provided Seda Scales " Nutrition intervention Seda Scales " social history E&M . Not homeless. Born in [place]. Not employed. Highest education level: none-8th grade. Sex at : Female. Sexual orientation: Heterosexual. Gender identity: Female. Gender of partner(s): Male. Julissa Novarez " sex at Female Julissa Novarez " patient considered to be homeless No Julissa Novarez " drug use, illicit Never Julissa Bararzaz " alcohol use Never Julissa Cortez " passive cigarette smoke exposure No Julissa Cortez " smoking status never smoker Julissa Novarez " social history reviewed E&M reviewed today Julissa Cortez " sexual orientation Heterosexual Julissa Cortez FUNCTIONAL STATUS No Information Available MENTAL STATUS Date Observation Value Provider Generalized Anxiety Disorder Questionnaire - Question 2 0 Yohana Yap " Generalized Anxiety Disorder Questionnaire - Question 1 0 Yohana Yap " assessment of judgment and insight E&M limited Abe Nichole " mental status examination: orientation E&M oriented to time, place, and person Abe Nichole " assessment of mood and affect E&M pleasant Abe Nichole assessment of judgment and insight E&M limited Nae Scales " mental status examination: orientation E&M oriented to time, place, and person Nae Scaels " assessment of mood and affect E&M [...] oriented to time, place, and person Nae Loyda " assessment of mood and affect E&M no depression, anxiety, or agitation Ane Loyda " Generalized Anxiety Disorder Questionnaire - Question 2 0 Lizabeth Garcia " Generalized Anxiety Disorder Questionnaire - Question 1 0 Lizabeth Garcia assessment of judgment and insight E&M intact Nae Loyda " mental status examination: orientation E&M oriented to time, place, and person Nae Loyda " assessment of mood and affect E&M no depression, anxiety, or agitation Nae Loyda " Generalized Anxiety Disorder Questionnaire - Question [...] oriented to time, place, and person Nae Loyda " assessment of mood and affect E&M no depression, anxiety, or agitation Naejose j Scales " Generalized Anxiety Disorder Questionnaire - Question 2 0 Cheryl Erickson " Generalized Anxiety Disorder Questionnaire - Question 1 0 Cheryl Earlrera assessment of judgment and insight E&M intact Nae Loyda " mental status examination: orientation E&M oriented to time, place, and person Nae Loyda " Generalized Anxiety Disorder Questionnaire - Question 2 0 Tahira Gentile " Generalized Anxiety Disorder Questionnaire - Question 1 0 Tahira Gentile assessment of judgment and insight E&M intact Nae Loyda " mental status examination: orientation E&M oriented to time, place, and person Nae Loyda " assessment of mood and affect E&M no depression, anxiety, or agitation Nae Loyda Generalized Anxiety Disorder Questionnaire - Question 2 0 Priya Butler " Generalized Anxiety Disorder Questionnaire - Question 1 0 Priya Butler assessment of judgment and insight E&M intact Nae Loyda " mental status examination: orientation E&M oriented to time, place, and person Nae Loyda " assessment of mood and affect E&M no depression, anxiety, or agitation Nae Loyda " Generalized Anxiety Disorder Questionnaire - Question 2 0 Julissajennifer Cortez " Generalized Anxiety Disorder Questionnaire - Question 1 0 Julissa Diego MEDICAL EQUIPMENT No Information Available FAMILY HISTORY [...] 25-Hydroxy Chlamydia/GC Amplification Pap w/HPV w rflx (30+) RPR, Rfx Qn RPR/Confirm TP HIV [...] please evaluate right knee pain - - Ofc Vst, Est Level III Urinalysis - Dip only - In House Est Patient Exp Problem - 70325 Ofc Vst, Est Level III BLOOD COUNT HEMOGLOBIN Est Patient Exp Problem - 47979 Est Patient Well Exam (40 - 64 Yrs) - 15206 Est Patient Exp Problem - 02437 Est Patient Exp Problem - 33847 Rapid Flu - In House Est Patient Well Exam (40 - 64 Yrs) - 86249 Rapid Strep - In House Est Patient Exp Problem - 70104 Interpretation Services Health Education/Supportive Counseling General Patient Education Est Patient Exp Problem - 63701 Rapid Strep - In House Est Patient Exp Problem - 46380 New Patient Detailed - 06121 HISTORY OF PROCEDURES Procedure Date Procedure Name Provider Procedure Notes Status Urinalysis - Dip only - In House Abe Nichole completed BLOOD COUNT HEMOGLOBIN Abe Nichole completed Rapid Flu - In House Camille Noble completed Rapid Strep - In House Nae Scales completed Interpretation Services Public Health Services Provider completed Health Education/Supportive Counseling Public [facility] Provider completed Rapid Strep - In House Constanza Barrientos completed GOALS No Information Available HEALTH CONCERNS No Information Available
--- OUTSIDE RECORDS SUMMARY | 2019-04-08 13:35 | XMS REPORT ---
Author Author Admin, [place] Organization Unknown Address Unknown Phone Unavailable PROBLEMS Condition Status Date Provider Notes Hemorrhoids, external active Nae Scales Constipation Unspecified active Abe Nichole Vitamin D [...] Provider Location Encounter Diagnosis - Ambulatory Encounter F[facility] - Ambulatory Encounter Fax Status [facility] UNK - Ambulatory Encounter Nae Scales [facility] UNK - Ambulatory Encounter Nae Scales [facility] UNK - Ambulatory Encounter Nae Scales [facility] UNK - Ambulatory Encounter Nae Rodriguezez Bettye S Gonzales [facility] Hemorrhoids, external - Ambulatory Encounter Abe Nichole [facility] UNK - Ambulatory Encounter Abe Nichole [facility] UNK - Ambulatory Encounter Abe Yap [facility] Constipation Unspecified - Ambulatory Encounter Nae Scales [facility] UNK - Ambulatory Encounter Nae Rodriguezez Bettye S Gonzales [facility] UNK - Ambulatory Encounter LSJ Lab Support Desktop LinkLogtran Nichole [facility] UNK - Ambulatory Encounter Fax [facility] UNK - [facility] Encounter Fax [facility] UNK - Ambulatory Encounter Abe Nazario [facility] UNK - Ambulatory Encounter Abe Nichole [facility] UNK - Ambulatory Encounter Abe Nichole [facility] UNK - Ambulatory Encounter Abe Erickson [facility] UNK - [facility]K - Ambulatory Encounter Fax Status [facility] UNK - Ambulatory Encounter Fax Status [facility] UNK - Ambulatory Encounter Fax Status [facility] UNK - Ambulatory Encounter Nae Scales [facility] UNK - Ambulatory Encounter Nae Smith [facility] UNK - Ambulatory Encounter Cheryl Erickson [facility] UNK - Ambulatory Encounter Nae Scales [facility] AnemiaVitamin D deficiency - Ambulatory Encounter Nae Scales [facility] UNK - Ambulatory Encounter Nae Scales [facility] UNK - Ambulatory Encounter Nae Scales [facility] UNK - Ambulatory Encounter LSJ Lab Support Desktop Cha Scales [facility] UNK - Ambulatory Encounter LSJ Lab Support Desktop LinkLogic Nae Scales [facility] UNK - Ambulatory Encounter LSJ Lab Support Desktop LinkKeishaic Cheryl Scales [facility] UNK - Ambulatory Encounter Fax Status [facility] UNK - Ambulatory Encounter Fax Status [facility] UNK - Ambulatory Encounter Fax Status [facility] UNK - Ambulatory Encounter Nae Scales [facility] Insomnia - Ambulatory Encounter Nae Scales [facility] UNK - Ambulatory Encounter Nae Jackman Alcantar [facility] FatiguePap Smear Screening, routineMammogram, ScreeningScreening, STDPlantar fasciitis, right - Ambulatory Encounter Nae Eubanks [facility] UNK - Ambulatory Encounter Nae Scales [facility] UNK - Ambulatory Encounter LSJ Lab Support Desktop LinkKeishaic Nae Scales [facility] UNK - Ambulatory Encounter Nae Scales [facility] UNK - Ambulatory Encounter Nae Burroughs [facility] UNK - Ambulatory Encounter Marie Ronald [facility] UNK - Ambulatory Encounter Camille Realbarbara Noble [facility] UNK - Ambulatory Encounter Camille Hartman [facility] FeverSinusitis - acuteCough - Ambulatory Encounter Vanessa Benton Denilson [facility] UNK - Ambulatory Encounter Nae Scales [facility] UNK - Ambulatory Encounter Nae Scales [facility] UNK - Ambulatory Encounter Nae Scales [facility] UNK - Ambulatory Encounter Lexii Smith [facility] UNK - Ambulatory Encounter Nae Scales [facility] UNK - Ambulatory Encounter LSJ Lab Support Desktop LinkLilli Scales [facility] UNK - Ambulatory Encounter Fax Status [facility] - Ambulatory Encounter Fax Status [facility] UNK - Ambulatory Encounter Fax Status [facility] UNK - Ambulatory Encounter Fax Status [facility] UNK - Ambulatory Encounter Nae Scales [facility] UNK - Ambulatory Encounter Nae Scales [facility] UNK - Ambulatory Encounter Nae Erickson [facility] Knee pain, rightUnspecified injury of right lower leg, initial encounterAnkle pain, rightTonsillitisFeverAbdominal painAnnual examRight knee pain - Ambulatory Encounter Jovanna Fowler [facility] UNK - Ambulatory Encounter Nae Scales [facility] UNK - Ambulatory Encounter Nae Scales [facility] UNK - Ambulatory Encounter Nae Scales [facility] UNK - Ambulatory Encounter Nae Gentile [facility] TonsillitisFever - Ambulatory Encounter Jason Qamar [facility] UNK - Ambulatory Encounter Jason Qamar [facility] UNK - Ambulatory Encounter [facility] - [facility] Encounter Amanda [facility] UNK - Ambulatory Encounter Amanda Reid [facility] UNK - Ambulatory Encounter Todd Eubanks [facility] UNK - Ambulatory Encounter Nae Scales [facility] UNK - Ambulatory Encounter Nae Reid [facility] Screening for endocrine diseaseScreening for thyroid disorderStrep pharyngitisAnkle pain, rightAbnormal fasting glucose - Ambulatory Encounter Constanza Barrientos [facility] UNK - Ambulatory Encounter Constanza Erickson [facility] Strep pharyngitis - Ambulatory Encounter Megan Cardenas [facility] UNK - Ambulatory Encounter Megan Cardenas [facility] UNK - Ambulatory Encounter Nae Scales [facility] UNK - Ambulatory Encounter Nae Scales [facility] UNK - Ambulatory Encounter LSJ Lab Support Desktop [facility] Nae Scales [facility] UNK - Ambulatory Encounter Nae Scales [facility] UNK - Ambulatory Encounter Nae Scales [facility] UNK - Ambulatory Encounter Nae Scales [facility] UN - Ambulatory Encounter Nae Cortez [facility] ObesityKnee pain, rightUnspecified injury of right lower leg, initial encounterHypertriglyceridemiaFatty liverDiabetes, Screening forScreening for endocrine diseaseScreening for thyroid disorder VITAL SIGNS No Information Available Allergies No Known Allergy Information REASON FOR REFERRAL Start Date - End Date Service - Gastroenterology - External - Podiatry - External - Endocrinology - [...] clear Yohana Pool " urine color yellow Yohnaa Pool infectious mononucleosis screen Negative LinkLogic Negative [...] as needed Abe Nichole VITAMIN D (ERGOCALCIFEROL) 87111 UNIT ORAL CAPSULE One capsule by mouth once per week for 12 weeks - Nae Scales FEOSOL 200 (65 FE) MG ORAL TABLET 1 tablet daily Abe Nichole VITAMIN D (ERGOCALCIFEROL) 56656 UNIT ORAL CAPSULE One capsule by mouth [...] Observation Value Provider drug use, illicit Never Augustina Alcantar " alcohol use Never Augustina Alcantar " social history E&M . Not homeless. Born in [place]. Not employed. Highest education level: none-8th grade. Sex at : Female. Sexual orientation: Heterosexual. Gender identity: Female. Gender of partner(s): Male. Augustina Alcantar " social history reviewed E&M reviewed today Augustina Alcantar " sexual orientation Heterosexual Augustina Alcantar " assessment of health literacy ([facility] 2014 Standards, 3C10) Adequate Augustina Alcantar " passive cigarette smoke exposure No Bettye S Gonzales " smoking status never smoker Bettye S Gonzales " Exercise Program Referral T Bettye S Gonzales " Weight Management Counseling Provided T Bettye S Gonzales " Nutrition intervention T Bettye S Gonzales drug use, illicit Never Yohana Pool " alcohol use Never Yohana Pool " social history E&M . Not homeless. Born in [place]. Not employed. Highest education level: none-8th grade. Sex at : Female. Sexual orientation: Heterosexual. Gender identity: Female. Gender of partner(s): Male. Yohana Pool " social history reviewed E&M reviewed today Yohana Pool " assessment of health literacy ([facility] 2014 Standards, 3C10) Adequate Yohana Pool " passive cigarette smoke exposure No Yohana Pool " smoking status never smoker Yohana Pool " Exercise Program Referral T Yohana Pool " Weight Management Counseling Provided T Yohana Pool " Nutrition intervention T Yohana Pool Exercise Program Referral T Augustina Alcanatr " Weight Management Counseling Provided T Augustina [...] S Gonzales " assessment of health literacy ([facility] 2014 Standards, 3C10) Adequate Bettye Gonzales " passive cigarette smoke exposure No Bettye Arredondodez " smoking status never smoker Bettye Arredondodez drug use, illicit Never Lizabeth Garcia " [...] Lizabeth Garcia " assessment of health literacy ([facility] 2014 Standards, 3C10) Adequate Lizabeth Garcia " passive cigarette smoke exposure No Lizabeth Garcia " smoking status never smoker Lizabeth Garcia Exercise Program Referral Seda Scales " Weight Management Counseling Provided Seda Scales " Nutrition intervention Seda Scales " sexual orientation Heterosexual Sharlene Smith " assessment of health literacy ([facility] 2014 Standards, 3C10) Adequate Sharlene Luis " [...] history E&M . Not homeless. Born in [place]. Not employed. Highest education level: none-8th grade. Sex at : Female. Sexual orientation: Heterosexual. Gender identity: Female. Gender of partner(s): Male. Lizabeth Garcia " social history reviewed E&M reviewed today Lizabeth Garcia " sexual orientation Heterosexual Lizabeth Garcia " assessment of health literacy ([facility] 2014 Standards, 3C10) Adequate Lizabeth Garcia " [...] Dena Burroughs " assessment of health literacy ([facility] 2014 Standards, 3C10) Adequate Dena Burroughs " [...] Merlyn Hartman " assessment of health literacy ([facility] 2014 Standards, 3C10) Adequate Merlyn Hartman Exercise Program Referral Seda Scales " Weight Management Counseling Provided Seda Scales " Nutrition intervention Seda Scales " drug use, illicit Never Cheryl [...] Cheryl Erickson " assessment of health literacy ([facility] 2014 Standards, 3C10) Adequate Cheryl Erickson assessment of health literacy ([facility] 2014 Standards, 3C10) Adequate Nae Scales " [...] smoker Tahira Gentile assessment of health literacy ([facility] 2014 Standards, 3C10) Adequate Nae Scales " Exercise Program Referral Seda Scales " Weight Management Counseling Provided Seda Scales " Nutrition intervention Seda Scales " drug use, illicit Never Julissa Novarez " alcohol use Never Julissa Novarez " social history E&M . Not homeless. Born in [place]. Not employed. Highest education level: none-8th grade. Sex at : Female. Sexual orientation: Heterosexual. Gender identity: Female. Gender of partner(s): Male. Julissa Novarez " social history reviewed E&M reviewed today Julissa Novarez " sexual orientation Heterosexual Julissa Novarez " passive cigarette smoke exposure No Julissa Novarez " smoking status never smoker Julissa Novarez assessment of health literacy ([facility] 2014 Standards, 3C10) Adequate Priya Butler " [...] smoker Priya Butler assessment of health literacy ([facility] 2014 Standards, 3C10) Adequate Nae Scales " Exercise Program Referral Seda Scales " Weight Management Counseling Provided Seda Scales " Nutrition intervention Seda Scales " social history E&M . Not homeless. Born in [place]. Not employed. Highest education level: none-8th grade. Sex at : Female. Sexual orientation: Heterosexual. Gender identity: Female. Gender of partner(s): Male. Julissa Novarez " sex at Female Julissa Cortez " patient considered to be homeless No Julissa Novarez " drug use, illicit Never Julissa Cortez " alcohol use Never Julissa Cortez " passive cigarette smoke exposure No Julissa Novarez " smoking status never smoker Julissa Cortez " social history reviewed E&M reviewed today Julissa Cortez " sexual orientation Heterosexual Julissa Cortez FUNCTIONAL STATUS No Information Available MENTAL STATUS Date Observation Value Provider assessment of mood and affect E&M pleasant Nae Scales " mental status examination: orientation E&M oriented to time, place, and person Nae Scales " assessment of judgment and insight E&M limited Nae Scales Generalized Anxiety Disorder Questionnaire - Question 2 [...] Disorder Questionnaire - Question 2 0 Cheryl Earlrera " Generalized Anxiety Disorder Questionnaire - Question [...] no depression, anxiety, or agitation Nae Scales Generalized Anxiety Disorder Questionnaire - Question 2 [...] With Differential/Platelet - - - - - - please evaluate right knee pain - - Est Patient Exp Problem - 30520 Ofc Vst, Est Level III Urinalysis - Dip only - In House Est Patient Exp Problem - 27976 Ofc Vst, Est Level III BLOOD COUNT HEMOGLOBIN Est Patient Exp Problem - 67020 Est Patient Well Exam (40 - 64 Yrs) - 73985 Est Patient Exp Problem - 21491 Est Patient Exp Problem - 52650 Rapid Flu - In House Est Patient Well Exam (40 - 64 Yrs) - 00130 Rapid Strep - In House Est Patient Exp Problem - 92655 Interpretation Services Health Education/Supportive Counseling General Patient Education Est Patient Exp Problem - 65791 Rapid Strep - In House Est Patient Exp Problem - 78272 New Patient Detailed - 64225 HISTORY OF PROCEDURES Procedure Date Procedure Name [...]
--- OUTSIDE RECORDS SUMMARY | 2019-04-08 13:35 | XMS REPORT ---
Author Author Admin, [place] Organization Unknown Address Unknown Phone Unavailable PROBLEMS [...] Encounter Diagnosis - Ambulatory Encounter Nae Scales [facility] UNK - Ambulatory Encounter Nae Scales Charlo [facility] UNK - Ambulatory Encounter Nae Scales [facility] UNK - Ambulatory Encounter Nae Gonzales [facility] Hemorrhoids, external - Ambulatory Encounter Abe Nichole [facility]lo [facility] UNK - Ambulatory Encounter Abe Nichole [facility] UNK - Ambulatory Encounter Abe Yap [facility] Constipation Unspecified - Ambulatory Encounter Nae Scales [facility] UNK - Ambulatory Encounter Nae Gonzales [facility] UNK - Ambulatory Encounter [facility] Lab Support Desktop LinkLogic Abe Nichole [facility] UNK - Ambulatory Encounter Fax Status [facility] UNK - Ambulatory Encounter Fax Status [facility] UNK - Ambulatory Encounter Fax Status [facility] UNK - Ambulatory Encounter Abe Nazario [facility] UNK - Ambulatory Encounter Abe Nichole [facility] Practice UNK - Ambulatory Encounter Abe Nichole [facility] UNK - Ambulatory Encounter Abe Nazario Lizabethjavier Garcíaras Cheryl Erickson [facility] UNK - Ambulatory Encounter Nae Eubanks [facility] UNK - Ambulatory Encounter [facility] - [facility] - [facility]ulatory Encounter Fax Status [facility] UNK - Ambulatory Encounter Nae Scales [facility] UNK - Ambulatory Encounter Nae Smith [facility] UNK - Ambulatory Encounter Cheyrl Erickson [facility] UNK - Ambulatory Encounter Nae Scales [facility] AnemiaVitamin D deficiency - Ambulatory Encounter Nae Scales [facility] UNK - Ambulatory Encounter Nae Scales [facility] UNK - Ambulatory Encounter Nae Scales [facility] UNK - Ambulatory Encounter LSJ Lab Support Desktop LinkLogic Nae Scales [facility] UNK - Ambulatory Encounter LSJ Lab Support Desktop LinkLogic Nae Scales [facility] UNK - Ambulatory Encounter LSJ Lab Support Desktop LinkLogic Cheryl Scales [facility] UNK - Ambulatory Encounter Fax Status [facility] UNK - Ambulatory Encounter Fax Status [facility] UNK - Ambulatory Encounter Fax Status [facility] UNK - Ambulatory Encounter Nae Scales [facility] Insomnia - Ambulatory Encounter Nae Scales [facility] UNK - Ambulatory Encounter Nae Alcantar [facility] FatiguePap Smear Screening, routineMammogram, ScreeningScreening, STDPlantar fasciitis, right - Ambulatory Encounter Nae Scales [facility] UNK - Ambulatory Encounter Nae Scales [facility] UNK - Ambulatory Encounter [facility] UNK - Ambulatory Encounter Nae Scales [facility] UNK - Ambulatory Encounter Nae Burroughs [facility] UNK - Ambulatory Encounter Marie Cardenas [facility] UNK - Ambulatory Encounter Camilleangella Noble [facility] UNK - Ambulatory Encounter Camilleangella Hartman [facility] FeverSinusitis - acuteCough - Ambulatory Encounter Vanessa Oreilly [facility] UNK - Ambulatory Encounter Nae Scales [facility] UNK - Ambulatory Encounter Nae Scales [facility] UNK - Amb[facility] UNK - Ambulatory Encounter Lexii Smith [facility] UNK - Ambulatory Encounter Nae Scales [facility] UNK - Ambulatory Encounter LSJ Lab Support Desktop LinkLogic Lexii Scales [facility] UNK - Ambulatory Encounter [facility] - Ambulatory Encounter [facility] UNK - Ambulatory Encounter F[facility] UNK - Ambulatory Encounter F[facility] UNK - Ambulatory Encounter Nae Scales [facility] UNK - Ambulatory Encounter Nae Scales [facility] UNK - Ambulatory Encounter Nae Erickson [facility] Knee pain, rightUnspecified injury of right lower leg, initial encounterAnkle pain, rightTonsillitisFeverAbdominal painAnnual examRight knee pain - Ambulatory Encounter Jovanna Fowler [facility] UNK - Ambulatory Encounter Nae Scales [facility] UNK - Ambulatory Encounter Nae Scales [facility] UNK - Ambulatory Encounter aNe Scales [facility] UNK - Ambulatory Encounter Nae Gentile [facility] Practice TonsillitisFever - Ambulatory Encounter Jason Foote [facility] UNK - Ambulatory Encounter Jason Foote [facility] UNK - Ambulatory Encounter Public Health Services Provider Amanda Reid [facility] UNK - Ambulatory Encounter Amanda Reid [facility] UNK - Ambulatory Encounter Amanda Reid [facility] UNK - Ambulatory Encounter Todd Mock [facility] UNK - Ambulatory Encounter Nae Scales [facility] UNK - [facility] Screening for endocrine diseaseScreening for thyroid disorderStrep pharyngitisAnkle pain, rightAbnormal fasting glucose - Ambulatory Encounter Constanza Barrientos [facility] UNK - Ambulatory Encounter Constanza Erickson [facility] Strep pharyngitis - Ambulatory Encounter Megan Ronald [facility] UNK - Ambulatory Encounter Megan Cardenas [facility] UNK - Ambulatory Encounter Nae Scales [facility] UNK - Ambulatory Encounter Nae Eubanks [facility] UNK - Ambulatory Encounter LSJ Lab Support Desktop Cha Scales [facility] UNK - Ambulatory Encounter Nae Loyda Nae Loyda [facility] UN - Ambulatory Encounter Naejose j Scales Nae Loyda [facility] UNK - Ambulatory Encounter Naejose j Scales Nae Loyda [facility] UNK - Ambulatory Encounter Naejose j Scales Naejose j Scales Jenna Meza Julissa Diego [facility] ObesityKnee pain, rightUnspecified injury of right [...] 3.4-10.8 heterophile antibody screen (Monospot) negative Dena Aravind " hemoglobin, blood 8.0 g/dL Dena Nazario [...] identification kit, rapid strep method negative Nae Loyda influenza B virus antigen negative Priyasa Butler " influenza virus A antigen negative Rpiya Luke " Microbial identification kit, rapid strep method [...] as needed Abe Nichole VITAMIN D (ERGOCALCIFEROL) 55756 UNIT ORAL CAPSULE One capsule by mouth once per week for 12 weeks - Nae Scales FEOSOL 200 (65 FE) MG ORAL TABLET 1 tablet daily Abe Nichole VITAMIN D (ERGOCALCIFEROL) 59912 UNIT ORAL CAPSULE One capsule by mouth [...] Augustina Alcantar " assessment of health literacy ([facility] 2014 Standards, 3C10) Adequate Augustina Alcantar " [...] Yohana Pool " assessment of health literacy ([facility] 2014 Standards, 3C10) Adequate Yohana Pool " [...] S Gonzales " assessment of health literacy ([facility] 2014 Standards, 3C10) Adequate Bettye S Gonzales [...] Lizabeth Garcia " assessment of health literacy ([facility] 2014 Standards, 3C10) Adequate Lizabeth Garcia " passive cigarette smoke exposure No Lizabeth Garcia " smoking status never smoker Lizabeth Garcia Exercise Program Referral Seda Scales " Weight Management Counseling Provided Seda Scales " Nutrition intervention Seda Scales " sexual orientation Heterosexual Sharlene Luis " assessment of health literacy ([facility] 2014 Standards, 3C10) Adequate Sharlenejose j Smith " drug use, illicit Never Sharlene Luis [...] Lizabeth Garcia " assessment of health literacy ([facility] 2014 Standards, 3C10) Adequate Lizabeth Garcia " passive cigarette smoke exposure No Lizabeth Garcia " smoking status never smoker Lizabeth Garcia drug use, illicit Never Dena Burroughs " alcohol use Never Dena Burroughs " social history E&M . Not homeless. Born in [place]. Not employed. Highest education level: none-8th grade. Sex at : Female. Sexual orientation: Heterosexual. Gender identity: Female. Gender of partner(s): Male. Dena Burroughs " social history reviewed E&M reviewed today Dena Burroughs " sexual orientation Heterosexual Dena Burroughs " passive cigarette smoke exposure No Dena Burroughs " smoking status never smoker Dena Burroughs " assessment of health literacy ([facility] 2014 Standards, 3C10) Adequate Dena Burroughs " Exercise Program Referral T Dena Burroughs " Weight Management Counseling Provided T Dena Burroughs " Nutrition intervention Seda Burroughs drug use, illicit Never Merlyn Hartman [...] Merlyn Hartman " assessment of health literacy ([facility] 2014 Standards, 3C10) Adequate Merlyn Hartman Exercise [...] Cheryl Erickson " assessment of health literacy ([facility] 2014 Standards, 3C10) Adequate Cheryl Erickson assessment of health literacy ([facility] 2014 Standards, 3C10) Adequate Nae Scales " [...] smoker Tahira Gentile assessment of health literacy ([facility] 2014 Standards, 3C10) Adequate Nae Scales " [...] smoker Julissa Cortez assessment of health literacy ([facility] 2014 Standards, 3C10) Adequate Priya Butler " [...] smoker Priya Butler assessment of health literacy ([facility] 2014 Standards, 3C10) Adequate Nae Scales " [...] patient considered to be homeless No Julissa Cortez " drug use, illicit Never Julissa Cortze " alcohol use Never Julissa Cortez " [...] Disorder Questionnaire - Question 1 0 Yohana Pool " assessment of judgment and insight E&M [...] assessment of judgment and insight E&M intact Nea Scales " mental status examination: orientation E&M [...] Anxiety Disorder Questionnaire - Question 2 0 Merlynflorecita Hartman " Generalized Anxiety Disorder Questionnaire - [...] Disorder Questionnaire - Question 1 0 Cheryl Aldrichra assessment of judgment and insight E&M intact [...] - - Est Patient Exp Problem - 25446 Ofc Vst, Est Level III Urinalysis - Dip only - In House Est Patient Exp Problem - 95816 Ofc Vst, Est Level III BLOOD COUNT HEMOGLOBIN Est Patient Exp Problem - 42472 Est Patient Well Exam (40 - 64 Yrs) - 86240 Est Patient Exp Problem - 31410 Est Patient Exp Problem - 54254 Rapid Flu - In House Est Patient Well Exam (40 - 64 Yrs) - 95755 Rapid Strep - In House Est Patient Exp Problem - 31675 Interpretation Services Health Education/Supportive Counseling General Patient Education Est Patient Exp Problem - 09930 Rapid Strep - In House Est Patient Exp Problem - 12459 New Patient Detailed - 86416 HISTORY OF PROCEDURES Procedure Date Procedure Name [...]
--- OUTSIDE RECORDS SUMMARY | 2019-04-08 13:36 | XMS REPORT ---
Author Author Admin, [place] Organization Unknown Address Unknown Phone Unavailable PROBLEMS [...] Diagnosis - Ambulatory Encounter Fax Status [facility] - Ambulatory Encounter [facility]K - Ambulatory Encounter [facility] - Ambulatory Encounter Nae Scales [facility] UNK - Ambulatory Encounter Nae Scales [facility] UNK - Ambulatory Encounter Nae Scales [facility] UNK - Ambulatory Encounter Nae Rodriguezez Bettye S Gonzales [facility] Hemorrhoids, external - Ambulatory Encounter Abe Nichole [facility] UNK - Ambulatory Encounter Abe Nichole [facility] UNK - Ambulatory Encounter Abe Yap [facility] Constipation Unspecified - Ambulatory Encounter Nae Scales [facility] UNK - Ambulatory Encounter Nae Rodriguezez Bettye S Gonzales [facility] UNK - Ambulatory Encounter LSJ Lab Support Desktop LinkLogtran Nichole [facility] UNK - Ambulatory Encounter F[facility] UNK - Ambulatory Encounter F[facility] UNK - Ambulatory Encounter Fax Status [facility] UNK - Ambulatory Encounter Abe Nazario [facility] UNK - Ambulatory Encounter Abe Nichole [facility] UNK - Ambulatory Encounter Abe Nichole [facility] UNK - Ambulatory Encounter Abe Erickson [facility] Practice UNK - Ambulatory Encounter Nae [facility] UNK - Ambulatory Encounter Fax Status [facility] UNK - Ambulatory Encounter Fax Status [facility] UNK - Ambulatory Encounter Fax Status [facility] UNK - Ambulatory Encounter Nae Scales [facility] UNK - Ambulatory Encounter Nae Smith [facility] UNK - Ambulatory Encounter Cheryl Erickson [facility] UNK - Ambulatory Encounter Nae Scales [facility] AnemiaVitamin D deficiency - Ambulatory Encounter Nae Scales [facility] UNK - Ambulatory Encounter Nae Scales [facility] UNK - Ambulatory Encounter Nae Scales [facility] UNK - Ambulatory Encounter LSJ Lab Support Desktop Cha Scales [facility] UNK - Ambulatory Encounter LSJ Lab Support Desktop LinkLogic Nae Scales [facility] UNK - Ambulatory Encounter LSJ Lab Support Desktop LinkKeishaic Cheryl Scales [facility] UNK - Ambulatory Encounter Fax Status [facility] UNK - Ambulatory Encounter Fax Status [facility] UNK - Ambulatory Encounter Fax Status [facility] UNK - Ambulatory Encounter Nae Scales [facility] Insomnia - Ambulatory Encounter Nae Scales [facility] UNK - Ambulatory Encounter Nae Jackman Alcantar [facility] FatiguePap Smear Screening, routineMammogram, ScreeningScreening, STDPlantar fasciitis, right - Ambulatory Encounter Nae Eubanks [facility] UNK - Ambulatory Encounter Nae Scales [facility] UNK - Ambulatory Encounter LSJ Lab Support Desktop LinkKeishaic Nae Scales [facility] UNK - Ambulatory Encounter Nae Scales [facility] UNK - Ambulatory Encounter Nae Burroughs [facility] UNK - Ambulatory Encounter Marie Ronald [facility] UNK - Ambulatory Encounter Camille Realbarbara Noble [facility] UNK - Ambulatory Encounter Camille Hartman [facility] FeverSinusitis - acuteCough - Ambulatory Encounter Vanessa Benton Denilson [facility] UNK - Ambulatory Encounter Nae Scales [facility] UNK - Ambulatory Encounter Nae Scales [facility] UNK - Ambulatory Encounter Nae Scales [facility] UNK - Ambulatory Encounter Lexii Smith [facility] UNK - Ambulatory Encounter Nae Scales [facility] UNK - Ambulatory Encounter LSJ Lab Support Desktop LinkLilli Scales [facility] UNK - Ambulatory Encounter Fax Status [facility]ic [facility] UNK - Ambulatory Encounter Fax Status LinkLogic [facility] UNK - Ambulatory Encounter Fax [facility] UNK - Ambulatory Encounter Fax Status [facility] UNK - Ambulatory Encounter Nae Scales [facility] UNK - Ambulatory Encounter Nae Scales [facility] UNK - Ambulatory Encounter Nae Erickson [facility] Knee pain, rightUnspecified injury of right lower leg, initial encounterAnkle pain, rightTonsillitisFeverAbdominal painAnnual examRight knee pain - Ambulatory Encounter Jovanna Fowler [facility] UNK - Ambulatory Encounter Nae Scales [facility] UNK - Ambulatory Encounter Nae Scales [facility] UNK - Ambulatory Encounter Nae Scales [facility] UNK - Ambulatory Encounter Nae Gentile [facility] TonsillitisFever - Ambulatory Encounter Jason Qamar [facility] UNK - Ambulatory Encounter Jason Qamar [facility] UNK - Ambulatory Encounter Public Health Services Provider [facility] UNK - Ambulatory Encounter [facility] Reid [facility] UNK - Ambulatory Encounter Amanda Reid [facility] UNK - Ambulatory Encounter Todd Eubanks [facility] UNK - Ambulatory Encounter Nae Scales [facility] Practice UNK - Ambulatory Encounter Nae Reid [facility] Screening for endocrine diseaseScreening for thyroid disorderStrep pharyngitisAnkle pain, rightAbnormal fasting glucose - Ambulatory Encounter Constanza Barrientos [facility] UNK - Ambulatory Encounter Constanza Erickson [facility] Strep pharyngitis - Ambulatory Encounter Megan Cardenas [facility] UNK - Ambulatory Encounter Megan Cardenas [facility] UNK - Ambulatory Encounter Nae Scales [facility] UNK - Ambulatory Encounter Nae Scales [facility] UNK - Ambulatory Encounter LSJ Lab Support Desktop [facility] Nae Scales [facility] UNK - Ambulatory Encounter Nae Scales [facility] UNK - Ambulatory Encounter Nae Scales [facility] UNK - Ambulatory Encounter Nae Scales [facility] UN - Ambulatory Encounter Nae Cortez [facility] ObesityKnee pain, rightUnspecified injury of right lower [...] RECTAL SUPPOSITORY 1 suppository as needed Abe Nichloe COLACE 100 MG ORAL CAPSULE 1 by mouth twice a day as needed Abe Nichole VITAMIN D (ERGOCALCIFEROL) 18947 UNIT ORAL CAPSULE One capsule by mouth once per week for 12 weeks - Nae Scales FEOSOL 200 (65 FE) MG ORAL TABLET 1 tablet daily Abe Nichole VITAMIN D (ERGOCALCIFEROL) 63696 UNIT ORAL CAPSULE One capsule by mouth [...] Augustina Alcantar " assessment of health literacy ([facility] 2014 Standards, 3C10) Adequate Augustina Alcantar " [...] Yohana Pool " assessment of health literacy ([facility] 2014 Standards, 3C10) Adequate Yohana Pool " passive cigarette smoke exposure No Yohana Pool " smoking status never smoker Yohana Pool " Exercise Program Referral T Yohana Pool " Weight Management Counseling Provided T Yohnaa Pool " Nutrition intervention T Yohana Pool [...] S Gonzales " assessment of health literacy ([facility] 2014 Standards, 3C10) Adequate Bettye Gonzales " [...] Lizabeth Garcia " assessment of health literacy ([facility] 2014 Standards, 3C10) Adequate Lizabeth Garcia " passive cigarette smoke exposure No Lizabeth Garcia " smoking status never smoker Lizabeth Garcia Exercise Program Referral Seda Scales " Weight Management Counseling Provided Seda Scales " Nutrition intervention Seda Scales " sexual orientation Heterosexual Sharlene Smith " assessment of health literacy ([facility] 2014 Standards, 3C10) Adequate Sharlene Luis " [...] history E&M . Not homeless. Born in [place]. Not employed. Highest education level: none-8th grade. Sex at : Female. Sexual orientation: Heterosexual. Gender identity: Female. Gender of partner(s): Male. Lizabeth Garcia " social history reviewed E&M reviewed today Lizabeth Garcia " sexual orientation Heterosexual Lizabeth Garcia " assessment of health literacy ([facility] 2014 Standards, 3C10) Adequate Lizabeth Garcia " [...] Dena Burroughs " assessment of health literacy ([facility] 2014 Standards, 3C10) Adequate Dena Burroughs " [...] Merlyn Hartman " assessment of health literacy ([facility] 2014 Standards, 3C10) Adequate Merlyn Hartman Exercise [...] Cheryl Erickson " assessment of health literacy ([facility] 2014 Standards, 3C10) Adequate Cheryl Erickson assessment of health literacy ([facility] 2014 Standards, 3C10) Adequate Nae Scales " [...] smoker Tahira Gentile assessment of health literacy ([facility] 2014 Standards, 3C10) Adequate Nae Scales " [...] smoker Julissa Novarez assessment of health literacy ([facility] 2014 Standards, 3C10) Adequate Priya Butler " [...] smoker Priya Butler assessment of health literacy ([facility] 2014 Standards, 3C10) Adequate Nae Scales " [...] - - Est Patient Exp Problem - 07381 Ofc Vst, Est Level III Urinalysis - Dip only - In House Est Patient Exp Problem - 81267 Ofc Vst, Est Level III BLOOD COUNT HEMOGLOBIN Est Patient Exp Problem - 67777 Est Patient Well Exam (40 - 64 Yrs) - 73625 Est Patient Exp Problem - 38053 Est Patient Exp Problem - 20056 Rapid Flu - In House Est Patient Well Exam (40 - 64 Yrs) - 63110 Rapid Strep - In House Est Patient Exp Problem - 16998 Interpretation Services Health Education/Supportive Counseling General Patient Education Est Patient Exp Problem - 94327 Rapid Strep - In House Est Patient Exp Problem - 22228 New Patient Detailed - 13143 HISTORY OF PROCEDURES Procedure Date Procedure Name [...]
--- NOTE | 2019-04-08 19:16 | Operative Report ---
DATE OF PROCEDURE: 04/08/2019 SURGEON: Federico Sterling MD PROCEDURES: EGD with biopsies and colonoscopy with polypectomy. INDICATIONS FOR EGD: Dyspepsia. INDICATIONS FOR COLONOSCOPY: Rectal bleeding. MEDICATIONS: The patient was done under MAC, please see anesthesiologist's note. PROCEDURE IN DETAIL: With the patient in the left lateral decubitus position, a flexible fiberoptic Olympus gastroscope was introduced into the esophagus under direct visualization without any difficulty. There was some patchy erythema noted in distal esophagus. The scope was then advanced with ease into the stomach, a minute submucosal nodule was noted in the proximal body and that was biopsied. Mucosa overlying the antrum as well as the body revealed some diffuse erythema and moderate edema, and biopsies were obtained and sent to stain for H. pylori. The pylorus was of normal contour and shape, was intubated with ease and the scope was advanced all the way to the second portion of the duodenum. Biopsies were obtained from the proximal second portion and the duodenal bulb to rule out sprue. The scope was then withdrawn back into the stomach and retroflexed, and mucosa overlying the fundus and the cardia appeared to be within normal limits. The scope was then straightened out, it was subsequently withdrawn, and the patient tolerated the procedure well. IMPRESSION: 1. Distal esophagitis. 2. Gastritis, biopsied, biopsies sent to stain for Helicobacter pylori. 3. Minute submucosal nodule, proximal body, biopsied. 4. Rule out sprue. PLAN: Follow up histology. Initiate Protonix 40 mg 1 p.o. q.a.m. before meals. The patient was then turned around and after adequate lubrication of the anal canal, a flexible fiberoptic Olympus colonoscope was inserted into the rectum with ease and advanced all the way to the cecum. It was then withdrawn slowly. Mucosa overlying the cecum, ascending colon, and transverse colon appeared to be within normal limits. One polyp was removed per snare electrocautery from the descending colon. The sigmoid appeared to be within normal limits. One polyp was removed per snare electrocautery from the proximal rectum and the scope was then retroflexed into the distal rectum and moderate-sized internal hemorrhoids were noted, none of which was actively bleeding. The scope was then straightened out, it was subsequently withdrawn, and the patient tolerated the procedure well. IMPRESSION: 1. Descending colon polyp, removed per snare electrocautery. 2. Rectal polyp, removed per snare electrocautery. 3. Internal hemorrhoids, none actively bleeding. PLAN: Follow up histology. Initiate high-fiber, low-fat diet. Initiate high-fiber supplement. Drink a minimum of 64 ounces of water a day. Start VSL#3 one p.o. b.i.d. The patient might benefit from a followup colonoscopy in 3 years. Federico Sterling MD [facility] [place] /[id number] cc: [facility]
== END | disposition home or self-care (01) ==
LOC: OR 13:30
PROVIDERS: ATTEND Internal Medicine Gastroenterology
DX: K59.00 Constipation, unspecified (principal); D3A.026 Benign carcinoid tumor of the rectum; K29.70 Gastritis, unspecified, without bleeding; K64.8 Other hemorrhoids; B96.81 Helicobacter pylori [H. pylori] as the cause of diseases classified elsewhere; K20.9 Esophagitis, unspecified; K31.89 Other diseases of stomach and duodenum; K62.5 Hemorrhage of anus and rectum; E78.5 Hyperlipidemia, unspecified; N20.0 Calculus of kidney; Z68.36 Body mass index [BMI] 36.0-36.9, adult; Z80.0 Family history of malignant neoplasm of digestive organs
CPT/HCPCS: 43239; 45385; 81025; J2001; J2250; J2765; J3010

== ENCOUNTER → 2019-04-22 | Day surgery (SDC) | payer OTHER ==
[~2019-04-22] MED LIST changes: -FENTANYL CITRATE/PF 100MCG/2 ML INJ ONE; -HYOSCYAMINE 0.125 MG TAB ONE; -LIDOCAINE HCL 2% LOCAL INJ 5 ML SDV VIAL INJ ONE; -METOCLOPRAMIDE HCL 10 MG/2ML VIAL ONE; -PROPOFOL IV EMULSION 10 MG/ML 50 ML VIAL ONE
--- NOTE | 2019-04-22 20:48 | Operative Report ---
DATE OF PROCEDURE: 04/22/2019 SURGEON: Federico Sterling MD REFERRING PHYSICIAN: Dr. Nae Scales at the [facility] in [place]. PROCEDURE: Flexible sigmoidoscopy with biopsies. MEDICATIONS: The patient was done under MAC, please see anesthesiologist's note. 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 A flexible sigmoidoscopy is being carried out to biopsy the carcinoid resection site for any residual tissue. PROCEDURE IN DETAIL: With the patient in left lateral decubitus position, a flexible fiberoptic Olympus colonoscope was inserted into the rectum with ease and advanced to the proximal rectum. Polypectomy site was identified. Extensive biopsies were carried out and site was tattooed. The scope was then retroflexed into the distal rectum. Small internal hemorrhoids were noted, none of which was actively bleeding. The scope was then straightened out, it was subsequently withdrawn, and the patient tolerated the procedure well. IMPRESSION: 1. Carcinoid resection site proximal rectum extensively biopsied and tattooed. 2. Internal hemorrhoids none actively bleeding. PLAN: Follow up histology. If biopsies were positive for residual carcinoid tumor, then the patient will be referred for transanal excision of the carcinoid resection site. Federico Sterling [place] [facility] [place] /[id number] cc: Nae Scales [facility]
== END | disposition home or self-care (01) ==
LOC: ENDO 15:02
PROVIDERS: ATTEND Internal Medicine Gastroenterology
DX: Z09 Encounter for follow-up examination after completed treatment for conditions other than malignant neoplasm (principal); Z87.19 Personal history of other diseases of the digestive system; K64.8 Other hemorrhoids; K59.00 Constipation, unspecified; K62.5 Hemorrhage of anus and rectum; R12 Heartburn; Z98.890 Other specified postprocedural states; Z68.36 Body mass index [BMI] 36.0-36.9, adult; Z80.0 Family history of malignant neoplasm of digestive organs
CPT/HCPCS: 45330; 81025

== ENCOUNTER 2019-09-08 12:02 | Emergency (ER) | payer OTHER ==
[~2019-09-08] VITALS: Ht 160 cm; Wt 86.2 kg
[~2019-09-08 12:02] MED LIST changes: -MIDAZOLAM HCL 2 MG/2 ML VIAL ONE; -PROPOFOL IV EMULSION 10 MG/ML 20 ML VIAL ONE
--- NOTE | 2019-09-08 12:27 | Emergency Department Note ---
History of Present Illnes History of Present Illness Chief Complaint: COVID PUI History of Present Illness This is a 44 year old female arrives to the ED for cough and body aches. Patient states she was told she has bronchitis by in [place] yesterday. Patient denies any shortness of breath. Onset (how long ago): day(s) Severity: mild Onset quality: gradual Duration (how long): day(s) Timing of current episode: constant Progression: waxing and waning Chronicity: new Past Medical/Family History Physician Review I have reviewed the patient's past medical and family history. Any updates have been documented here. Past Medical History Recent Fever: Yes Clinical Suspicion of Infectio: Yes New/Unexplained Change in Ment: No Past Surgical History: None Social History Counseling Performed: No Alcohol Use: Social Any Illegal Drug Use: No TB Exposure/Symptoms: No Review of Systems Review of Systems Constitutional: Reports as per HPI, Reports malaise, Reports weakness EENTM: Reports no symptoms Cardiovascular: Reports no symptoms Respiratory: Reports as per HPI Gastrointestinal: Reports no symptoms Genitourinary: Reports no symptoms Musculoskeletal: Reports no symptoms Integumentary: Reports no symptoms Neurological: Reports no symptoms Psychological: Reports no symptoms Endocrine: Reports no symptoms Hematological/Lymphatic: Reports no symptoms Physical Exam Related Data Allergies: Coded Allergies: No Known Allergies (Unverified , 04/05/19) Vital signs reviewed: Yes Physical Exam CONSTITUTIONAL Constitutional: Present well-developed, Present well-nourished HENT HENT: Present normocephalic, Present atraumatic, Present oropharynx clear/moist, Present nose normal HENT L/R: Present left ext ear normal, Present right ext ear normal EYES Eyes: Reports PERRL, Reports conjunctivae normal NECK Neck: Present ROM normal PULMONARY Pulmonary: Present effort normal, Present breath sounds normal CARDIOVASCULAR Cardiovascular: Present regular rhythm, Present heart sounds normal, Present capillary refill normal, Present normal rate GASTROINTESTINAL Abdominal: Present soft, Present nontender, Present bowel sounds normal GENITOURINARY Genitourinary: Present exam deferred SKIN Skin: Present warm, Present dry MUSCULOSKELETAL Musculoskeletal: Present ROM normal NEUROLOGICAL Neurological: Present alert, Present oriented x 3, Present no gross motor or sensory deficits PSYCHOLOGICAL Psychological: Present mood/affect normal, Present judgement normal Assessment & Plan Medical Decision Making MDM 44-year-old well-appearing female arrives to the ED with complaints of cough fever loss of taste and smell. Patient is clinically presenting with signs and symptoms consistent with Covid 19. Patient informed he is positive until proven otherwise. Patient's oxygen saturation remained 99% even on exertion, no evidence of tachypnea or dyspnea noted in the ED. Spoke present length about the importance of sleeping on her stomach and rotating from side to side. Z-Martinez given, signs and symptoms for return discussed. In the light of the Covid pandemic, disaster medicine care was given- patient understands why she was not tested for Covid 19 in the ED, no indications for a chest x-ray at this time given normal oxygen saturation and respiratory status. Pt understands she is welcome to return to the ED at anytime for worsening symptoms. Assessment & Plan Final Impression: (1) COVID-19 Depart Disposition: HOME, SELF-[facility] Meds Reported Medications Lactobac Cmb #3/Fos/Pantethine (PROBIOTIC & ACIDOPHILUS CAP) 1 Each Capsule, PO BID 04/21/19 Pantoprazole Sodium* (PROTONIX) 40 Mg Tablet., 40 MG PO DAILY, TAB 04/21/19 ROMAINE YING DO Sep 08, 2019 12:27
== END 2019-09-08 12:30 | disposition home or self-care (01) ==
LOC: ER 12:15
DX: U07.1 COVID-19 (principal); R05 Cough; K21.9 Gastro-esophageal reflux disease without esophagitis
CPT/HCPCS: 99282

== ENCOUNTER → 2020-03-29 | Day surgery (SDC) | payer OTHER ==
[~2020-03-29] MED LIST changes: +HYOSCYAMINE 0.125 MG TAB ONE; +HYOSCYAMINE SULFATE 0.5 MG/ML INJ ONE; +LABETALOL HCL 5 MG/ML 20ML VIAL ONE; +LIDOCAINE HCL 2% LOCAL INJ 5 ML SDV VIAL INJ ONE; +PROPOFOL IV EMULSION 10 MG/ML 20 ML VIAL ONE; +VIT C PO; +VIT D PO
[2020-03-29 15:40] VITALS: BP 103/58
== END | disposition home or self-care (01) ==
LOC: OR 11:57
PROVIDERS: ATTEND Internal Medicine Gastroenterology
DX: Z09 Encounter for follow-up examination after completed treatment for conditions other than malignant neoplasm (principal); D12.4 Benign neoplasm of descending colon; K62.1 Rectal polyp; K64.8 Other hemorrhoids; K21.9 Gastro-esophageal reflux disease without esophagitis; Z01.812 Encounter for preprocedural laboratory examination; Z20.822 Contact with and (suspected) exposure to COVID-19
CPT/HCPCS: 45380; 45384; 81025; J1980; J2001; J2704; J3490; U0002; 45378

== ENCOUNTER 2020-09-23 17:27 | Emergency (ER) | payer OTHER ==
[~2020-09-23] VITALS: Ht 160 cm; Wt 86.2 kg
[~2020-09-23 17:27] MED LIST changes: -HYOSCYAMINE 0.125 MG TAB ONE; -HYOSCYAMINE SULFATE 0.5 MG/ML INJ ONE; -LABETALOL HCL 5 MG/ML 20ML VIAL ONE; -LIDOCAINE HCL 2% LOCAL INJ 5 ML SDV VIAL INJ ONE; -PROPOFOL IV EMULSION 10 MG/ML 20 ML VIAL ONE
[2020-09-23] MEDS ORDERED: ACETAMINOPHEN 325 MG TAB PO ONE (18:00)
[2020-09-23] MEDS ORDERED: CASIRIVIMAB/IMDEVIMAB 600 MG in SODIUM CHLORIDE 0.9% 250ML 250 ML IV ONE ×4 (21:15)
== END 2020-09-23 23:55 | disposition home or self-care (01) ==
LOC: ER 20:16
DX: U07.1 COVID-19 (principal)
CPT/HCPCS: 99283; U0002

== ENCOUNTER → 2022-09-03 | Outpatient (CLI) | payer OTHER | LOC: US 08:25 | PROVIDERS: ATTEND Internal Medicine Gastroenterology | DX: K76.0 Fatty (change of) liver, not elsewhere classified (principal); D50.9 Iron deficiency anemia, unspecified; D64.9 Anemia, unspecified | CPT/HCPCS: 74250; 76705; 81025 ==

== ENCOUNTER → 2023-08-27 | Day surgery (SDC) | payer OTHER ==
[~2023-08-27] MED LIST changes: +LACTATED RINGER'S 1,000 ML ONE; +LIDOCAINE HCL 2% LOCAL INJ 5 ML SDV VIAL INJ ONE; +MAGNESIUM OXID400 MG PO; +MIDAZOLAM HCL 2 MG/2 ML VIAL ONE; +OMEGA 3 FISH O1 EACH PO; +PAROXETINE HCL20 MG PO; +PROPOFOL IV EMULSION 10 MG/ML 20 ML VIAL ONE; +PROPOFOL IV EMULSION 10 MG/ML 50 ML VIAL IV ONE; +TUMERIC PO; +VIT D3 PO; +VIT E PO
[2023-08-27 14:38] VITALS: TEMP 97
[2023-08-27 15:05] VITALS: BP 129/89; PULSE 81; RESP 18; O2SAT 98
[2023-08-31 08:15] LABS: ENDOMYSIAL ANTIBODIES, IGA Negative (Negative)
[2023-08-31 09:52] LABS: IMMUNOGLOBULIN A 167 mg/dL (87-352); TISSUE TRANSGLUTAMINASE IGA AB <2 U/mL (0-3)
== END | disposition home or self-care (01) ==
LOC: OR 11:47
PROVIDERS: ATTEND Internal Medicine Gastroenterology
DX: K29.70 Gastritis, unspecified, without bleeding (principal); D3A.026 Benign carcinoid tumor of the rectum; Z86.010 Personal history of colon polyps; B96.81 Helicobacter pylori [H. pylori] as the cause of diseases classified elsewhere; K21.9 Gastro-esophageal reflux disease without esophagitis; K64.8 Other hemorrhoids; Z71.3 Dietary counseling and surveillance; D50.9 Iron deficiency anemia, unspecified; K76.0 Fatty (change of) liver, not elsewhere classified; F41.9 Anxiety disorder, unspecified; G89.29 Other chronic pain; Z01.810 Encounter for preprocedural cardiovascular examination; Z01.812 Encounter for preprocedural laboratory examination; Z79.899 Other long term (current) drug therapy; Z68.34 Body mass index [BMI] 34.0-34.9, adult; Z86.16 Personal history of COVID-19; Z80.0 Family history of malignant neoplasm of digestive organs
CPT/HCPCS: 43239; 45380; 81025; 82784; 83516; 86256; 93005; C9113; J2001; J2250; J2704 ×2; J7121; 45378